=== PATIENT | female | born 1950 | race Caucasian/White ===

== ENCOUNTER → 2016-09-02 | Outpatient (REF) | payer MEDICARE ==
[~2016-09-02] MED LIST: ACET-654 PO; ACET50TA; ACET50TA PO; ALBU17IN INH; AUGM875T27 PO; AZIT250T3 PO; CALC0.5C PO; CALC1CAP31 PO; CEFA1BAG INJ; CINA30TA PO; DIFL200T PO; DOCU10CA PO; DOXY100C PO; EPOG1000 SQ; FERR325T3 PO; FISH100049 PO; FISH5CAP PO; FISHCAP5 PO; FLUD1TA PO; FOSR1000 PO; GABA-279 PO; GEMF600T PO; HYDR5TAB59 PO; LEVA500T PO; MICR10CA PO; MIDO5TA PO; MIRA33504 PO; MUCI600T34 PO; NEPHTAB PO; No Historical Meds; PERC5TAB6 PO; POTA20VL PO; PRAV20TA2 PO; PRAV40TA2 PO; PRIL20CA; RENATAB5 PO; RENV2TAB PO; RISATAB3 PO; ROPI0.5T PO; SENS90TA PO; TYLE325T5 PO; VIBR100C PO; VITA200015 PO; VITAD1000T PO; [UNRECOGNIZED DRUG - OTHER] PO
[2016-09-02 14:06] LABS: PERCENT SATURATION 53.3 % (13.2-37.4)
[2016-09-04 00:07] LABS: ENDOMYSIAL ABY IgA Negative (Negative)
== END ==
LOC: M LAB REF 12:26
PROVIDERS: ATTEND Internal Medicine Medical Oncology
DX: D64.9 Anemia, unspecified (principal)

== ENCOUNTER → 2016-09-20 | Outpatient (REF) | payer MEDICARE ==
[2016-09-20 21:18] LABS: TOTAL PROTEIN 6.9 GM/DL (6.4-8.2)
[2016-09-23 00:06] LABS: FREE KAPPA LIGHT CHAINS SERUM 186.96 mg/L (3.30-19.40); FREE LAMBDA LIGHT CHAINS SERUM 147.02 mg/L (5.71-26.30); KAPPA/LAMBDA RATIO SERUM 1.27 (0.26-1.65)
== END ==
LOC: M LAB REF 16:29
PROVIDERS: ATTEND Internal Medicine Medical Oncology
DX: D64.9 Anemia, unspecified (principal)

== ENCOUNTER → 2016-10-05 | Outpatient (REF) | payer MEDICARE ==
[~2016-10-05] MED LIST changes: +DRIS50002 PO; +[UNRECOGNIZED DRUG - CODE] PO
== END ==
LOC: M LAB REF 13:02
PROVIDERS: ATTEND Internal Medicine Medical Oncology
DX: D46.4 Refractory anemia, unspecified (principal)

== ENCOUNTER → 2016-10-11 | Outpatient (CLI) | payer MEDICARE ==
[2016-10-11 12:21] LABS: MEAN CORPUSCULAR HEMOGLOBIN 35.2 pg (27.0-33.0); MEAN CORPUSCULAR HGB CONC 31.5 g/dl (32.0-36.5); MEAN CORPUSCULAR VOLUME 111.7 fl (80.0-96.0); RED CELL DISTRIBUTION WIDTH 20.6 % (11.5-14.5); WHITE BLOOD COUNT 10.5 K/mm3 (4.0-10.0)
--- NOTE | 2016-10-11 18:00 | ECGEPIP ---
Stationary ECG Study [facility] Test Date: 2016-10-11 Pat Name: FREDDY FULLER Department: Room: - Gender: F Health And Safety Director: ELA : 1950 Requested By: Gumaro Mo Order Number: [id number] Reading MD: Arthur Dwyer Measurements Intervals [place] Rate: 99 P: 59 CA: 151 QRS: -27 QRSD: 96 T: 45 QT: 378 QTc: 486 Interpretive Statements SINUS RHYTHM LEFT ATRIAL ENLARGEMENT BORDERLINE LEFT AXIS DEVIATION NONSPECIFIC T-WAVE ABNORMALITY No change from 07/10/16 Electronically Signed On 10-11-2016 17:59:54 EST by Arthur Dwyer
== END ==
LOC: M LAB 11:02
PROVIDERS: ATTEND Anesthesiology
DX: Z01.818 Encounter for other preprocedural examination (principal)

== ENCOUNTER → 2016-10-14 | Day surgery (SDC) | payer MEDICARE ==
[~2016-10-14] VITALS: Ht 165.1 cm; Wt 77.1 kg
[~2016-10-14] MED LIST changes: +BUPIVACAINE HCL 0.25% 30 ML VIAL As Ordered ONE; +BUPIVACAINE HCL 0.25% 30 ML VIAL XX ONE; +D5W/0.2% SODIUM CHLORIDE 250 ML IV SCH; +GLYCOPYRROLATE INJ 0.2 MG/ML 2 ML VIAL As Ordered ONE; +HEPARIN 1,000 UNITS/ML 10ML VIAL (FOR RADIOLOGY& DIALYSIS ONLY) XX ONE; +HEPARIN SOD (PORCINE) 5000 UNITS/ML VIAL As Ordered ONE; +HEPARIN SOD (PORCINE) 5000 UNITS/ML VIAL XX ONE; +LIDOCAINE 2% INJ 100 MG/5 ML SDV (FOR ANES.) As Ordered ONE; +LR 1,000 ML IV SCH; +METOCLOPRAMIDE INJ 10MG/2ML VIAL (J2765) IV PRN; +MIDAZOLAM INJ 2 MG/2 ML VIAL (J2250) As Ordered ONE; +NEOSTIGMINE 1MG/ML 5 ML SYRINGE (J2710) As Ordered ONE; +NORCO, ANEXSIA 5/325MG TABLET (HYDROcodone/ACETAMINOPHEN) PO PRN; +NS 1,000 ML IV SCH; +ONDANSETRON 4MG/2ML VIAL (J2405) As Ordered ONE; +ONDANSETRON 4MG/2ML VIAL (J2405) IV PRN; +PERCOCET 5MG/325MG TAB PO PRN; +PHENYLephrine HCL 500 MCG/5 ML (100MCG/ML) SYRINGE (J2370) As Ordered ONE; +PROPOFOL 200 MG/20 ML VIAL As Ordered ONE; +ROCURONIUM BROMIDE 50 MG/5 ML VIAL As Ordered ONE; +VITA100L PO; +ePHEDrine SULFATE 25 MG/5 ML(5MG/ML) SYRINGE As Ordered ONE; +fentaNYL 100 MCG/2 ML INJECTION (J3010) As Ordered ONE; +fentaNYL 100 MCG/2 ML INJECTION (J3010) IV PRN
[2016-10-14 15:00] VITALS: BP 90/54
--- NOTE | 2016-10-14 20:55 | RO ---
DATE OF PROCEDURE: 10/14/2016 PREOPERATIVE DIAGNOSIS: End-stage renal disease. POSTOPERATIVE DIAGNOSIS: End-stage renal disease. OPERATIVE PROCEDURE: Laparoscopy with placement of continuous ambulatory peritoneal dialysis catheter. SURGEON: Jass Flores MD MANAGER HOTEL: Nicole Benavidez ANESTHESIA: General. INDICATIONS FOR PROCEDURE: The patient is a 66-year-old woman with a longstanding history of end-stage renal disease. She had previously undergone placement of a CAPD catheter and was doing well. Her catheter was subsequently damaged and she developed peritonitis. It was necessary to remove the peritoneal dialysis catheter. She has been doing hemodialysis for the last several months and is now for placement of a new peritoneal dialysis catheter. Because of her history of prior surgery and recent peritonitis, she will undergo laparoscopy with placement of the catheter. OPERATIVE PROCEDURE; The patient was placed under general endotracheal anesthesia. The patient's abdomen was prepped and draped in a sterile fashion. 0.25% Marcaine was infiltrated in the right upper quadrant and a small incision was made and Veress needle was inserted. After positive hanging drop test, the abdomen was insufflated with carbon dioxide gas. A 5 mm scope was placed through a 5-mm port and this was advanced through the abdominal wall without difficulty. Insufflation continued and inspection was performed with the laparoscope. The patient had no intra-abdominal adhesions. Visualized portions of the bowel and liver were normal. There were no evident fascial defects. I elected to place the new catheter in the right lower quadrant. Therefore, additional local anesthesia was achieved and a second 5 mm port was placed roughly through the midportion of the rectus muscle in the right lower quadrant. A 3 cm incision was then made longitudinally, centered on the right lower quadrant trocar site. The incision was deepened through the abundant subcutaneous tissues with the cautery. The rectus fascia was opened longitudinally. Some bleeding was controlled with the electrocautery. The opening in the peritoneum was identified. A pursestring suture of #2-0 Vicryl was placed in the peritoneum and the catheter was advanced into the abdomen. The pursestring suture was tied down and then the suture was tied about the inner pledget. The anterior rectus sheath was then closed beginning inferiorly and running superiorly with a #0 Vicryl suture. The catheter was then tunneled through the subcutaneous tissues to exit slightly more inferior and lateral through a separate stab wound. The second pledget was left approximately 1.5 cm beneath the skin surface. The wound was inspected and hemostasis was good. The laparoscope was reinserted. A small amount of blood within the abdomen was irrigated and this fluid was then drained through the catheter. The catheter was nicely positioned low in the pelvis about in the midline. The abdomen was then deflated and the remaining trocar was removed. The catheter was filled with 1 mL of 5000 units/cc heparin and approximately 1.3 mL of sterile saline. The catheter was then capped and a small clamp was applied. The right upper quadrant trocar site was closed with a buried suture of 4-0 vicryl. The insertion site was closed with buried 3-0 chromic and 4-0 vicryl. A Chlorhexidine gluconate OpSite was placed over the catheter exit site and a bulky bandage was then placed to cover the catheter. A small bandage was placed over the right upper quadrant trocar site. The patient tolerated the procedure well without apparent complication. She was extubated and transported to the recovery room in stable condition. DANYELLE
== END | disposition home or self-care (01) ==
LOC: M SDC 09:11
PROVIDERS: ATTEND Surgery
DX: N18.6 End stage renal disease (principal); E21.3 Hyperparathyroidism, unspecified; E55.9 Vitamin D deficiency, unspecified; E78.5 Hyperlipidemia, unspecified; D63.1 Anemia in chronic kidney disease; Z87.891 Personal history of nicotine dependence; Z88.1 Allergy status to other antibiotic agents; Z79.899 Other long term (current) drug therapy
CPT/HCPCS: 36415; 49418; 84132; J0690; J2250; J2370; J2405; J2710; J3010

== ENCOUNTER → 2017-01-25 | Outpatient (CLI) | payer MEDICARE ==
[~2017-01-25] MED LIST changes: -BUPIVACAINE HCL 0.25% 30 ML VIAL As Ordered ONE; -BUPIVACAINE HCL 0.25% 30 ML VIAL XX ONE; -D5W/0.2% SODIUM CHLORIDE 250 ML IV SCH; -GLYCOPYRROLATE INJ 0.2 MG/ML 2 ML VIAL As Ordered ONE; -HEPARIN 1,000 UNITS/ML 10ML VIAL (FOR RADIOLOGY& DIALYSIS ONLY) XX ONE; -HEPARIN SOD (PORCINE) 5000 UNITS/ML VIAL As Ordered ONE; -HEPARIN SOD (PORCINE) 5000 UNITS/ML VIAL XX ONE; -LIDOCAINE 2% INJ 100 MG/5 ML SDV (FOR ANES.) As Ordered ONE; +LIDOCAINE 2% MDV 20 ML VIAL As Ordered ONE; -LR 1,000 ML IV SCH; -METOCLOPRAMIDE INJ 10MG/2ML VIAL (J2765) IV PRN; -MIDAZOLAM INJ 2 MG/2 ML VIAL (J2250) As Ordered ONE; -NEOSTIGMINE 1MG/ML 5 ML SYRINGE (J2710) As Ordered ONE; -NORCO, ANEXSIA 5/325MG TABLET (HYDROcodone/ACETAMINOPHEN) PO PRN; -NS 1,000 ML IV SCH; -ONDANSETRON 4MG/2ML VIAL (J2405) As Ordered ONE; -ONDANSETRON 4MG/2ML VIAL (J2405) IV PRN; -PERCOCET 5MG/325MG TAB PO PRN; -PHENYLephrine HCL 500 MCG/5 ML (100MCG/ML) SYRINGE (J2370) As Ordered ONE; -PROPOFOL 200 MG/20 ML VIAL As Ordered ONE; -ROCURONIUM BROMIDE 50 MG/5 ML VIAL As Ordered ONE; -ePHEDrine SULFATE 25 MG/5 ML(5MG/ML) SYRINGE As Ordered ONE; -fentaNYL 100 MCG/2 ML INJECTION (J3010) As Ordered ONE; -fentaNYL 100 MCG/2 ML INJECTION (J3010) IV PRN
--- NOTE | 2017-02-03 16:23 | REPKIM ---
CLINICAL HISTORY: Patient has a left IJ TDC for ongoing dialysis. The referring nephrology service has requested to remove the existing TDC because it is no longer needed. PROCEDURE PERFORMED: Tunneled Dialysis Catheter Removal INTERVENTIONALIST: Dr. Brandon Linn CONSENT: The risks, benefits and alternatives to the procedure were explained to the patient and informed written consent was obtained. MEDICATION: Local Lidocaine 2% EBL: 5 mL PROCEDURE/FINDINGS: The patient was brought to the interventional radiology suite and placed in the supine position with head of bed elevated. Time out procedure was performed. The area was prepped and draped in a usual sterile fashion. Local anesthesia was administered subcutaneously to the catheter exit site using 2% Lidocaine. The catheter cuff was bluntly dissected free from the surrounding soft tissues. The catheter was removed, inspected and confirmed to be removed in its entirety. Hemostasis was achieved by manual compression. A sterile dressing was applied. The patient tolerated the procedure well with no immediate complications. No imaging was used. Dr. Linn was present. IMPRESSION: Tunneled dialysis catheter removal as discussed above. cc: MD DANYELLE Naranjo
== END | disposition home or self-care (01) ==
LOC: M IRPRO 11:25
PROVIDERS: ATTEND Internal Medicine Nephrology
DX: Z45.2 Encounter for adjustment and management of vascular access device (principal); N18.9 Chronic kidney disease, unspecified; Z99.2 Dependence on renal dialysis

== ENCOUNTER → 2017-02-10 | Outpatient (CLI) | payer MEDICARE ==
[~2017-02-10] MED LIST changes: -LIDOCAINE 2% MDV 20 ML VIAL As Ordered ONE
== END ==
LOC: M SMT 15:18
PROVIDERS: ATTEND Internal Medicine Nephrology
DX: D64.9 Anemia, unspecified (principal)

== ENCOUNTER 2017-02-11 09:44 | Outpatient (CLI) | payer MEDICARE ==
[~2017-02-11] VITALS: Ht 165.1 cm; Wt 88.7 kg
[2017-02-11] MEDS ORDERED: diphenhydrAMINE 25 MG CAP PO ONE (10:00)
== END 2017-02-11 17:00 | disposition home or self-care (01) ==
LOC: M OPCLI4PV 09:44 → M MSPAV 09:47 → M OPCLI4PV 17:00
PROVIDERS: ATTEND Internal Medicine Nephrology
DX: D46.0 Refractory anemia without ring sideroblasts, so stated (principal); N18.6 End stage renal disease; Z88.8 Allergy status to other drugs, medicaments and biological substances; Z79.899 Other long term (current) drug therapy
CPT/HCPCS: 36430; P9016

== ENCOUNTER → 2017-03-09 | Outpatient (CLI) | payer MEDICARE ==
[~2017-03-09] MED LIST changes: -ACET-654 PO; +ACET1TAB17 PO; -AUGM875T27 PO; +AUGM875T28 PO; +AZIT-12 PO; -AZIT250T3 PO; +FLUD0.1T PO; -FLUD1TA PO; +LEVA1TAB2 PO; -LEVA500T PO; +MIDO10TA PO; -MUCI600T34 PO; +MUCI600T37 PO; +PERC5TAB12 PO; -PERC5TAB6 PO; +PROM25TA PO; +TRAM50TA2 PO; +ZOFR20TA PO
--- NOTE | 2017-03-09 10:49 | REP ---
PA and lateral chest: Comparison is 07/13/2016. The lung aguilar are clear. There are no pleural effusions. There is chronic cardiomegaly, unchanged. The sandra, mediastinum, and bony thorax are unremarkable. The previous left IJ central venous catheter has been removed. Impression: Chronic cardiomegaly. Otherwise, negative PA and lateral chest. Signed by Jonas Kumar MD 03/09/2017 10:41 A
== END ==
LOC: M SMT 10:21
PROVIDERS: ATTEND Nurse Practitioner Adult Health
DX: R06.02 Shortness of breath (principal); I51.7 Cardiomegaly

== ENCOUNTER → 2017-04-24 | Outpatient (CLI) | payer MEDICARE ==
--- NOTE | 2017-04-28 09:25 | SLEEPCENT ---
DATE OF STUDY: 04/24/2017 ORDERING PROVIDER: SHIRA Kaur Nocturnal polysomnography was performed for evaluation of sleep physiology in this patient with excessive somnolence, abnormal nocturnal oximetry, and nonrestorative sleep. 7 hours and 49 minutes of data were reviewed. There were 372 minutes of sleep identified. Sleep latency was prolonged at 29 minutes. Rapid eye movement (REM) latency was prolonged at 186 minutes. Sleep architecture was poor with poor progression. Overall sleep efficiency was 80.3%. The patient's electrocardiogram (EKG) showed a sinus rhythm with an average heart rate of 88 beats per minute. Electroencephalogram (EEG) showed fairly normal waveforms for awake and sleep. There were 293 respiratory events identified of 10 seconds in duration or greater for an apnea-hypopnea index of 47.3. The events were frequently central; 222 central and 35 mixed apneas were scored. The events were not exclusive to sleep stage nor body posture. They were associated with oxygen desaturations into the 80s; and having clearly established the presence of obstructive sleep apnea syndrome early in testing, the study was stopped shortly before midnight for the application of pressure therapy. The patient was fit with a ResMed Quattro full face mask of extra small size. An initial pressure of 4 cm was applied to the circuit, and the lights were extinguished. Persistence of respiratory events prompted an increase in pressure; and despite optimal mask fit and minimal air leak, the patient required a change to a bilevel device. Central apneas present during the diagnostic portion of the study persisted, prompting the addition of a backup rate. The pressures were advanced as high as 15 over 9. Respiratory events persisted, although less frequently and with less oxygen desaturation. Some limb activity was also noted throughout the study. Limb movement arousal index was 7.9. Some of the limb events were felt to be secondary to respiratory arousals. IMPRESSION: 1. Severe complex obstructive sleep apnea syndrome. Apnea-hypopnea index of 47.3 with greater than 50% central events. 2. Periodic limb movement disorder (G47.61). Limb movement arousal index 7.9. RECOMMENDATION: Attempts were made during the study to titrate the patient onto a bilevel device. Sleep did improve somewhat on a bilevel device of inspiratory 15 over expiratory 9 with a backup rate of 8. Consideration could be given to initiation of pressure therapy at this setting. However, persistence of events were seen, and a full-night retitration study is recommended.
== END ==
LOC: M SLEEP 20:00
PROVIDERS: ATTEND Nurse Practitioner Adult Health
DX: G47.30 Sleep apnea, unspecified (principal); R06.83 Snoring; R40.0 Somnolence

== ENCOUNTER → 2017-05-26 | Outpatient (CLI) | payer MEDICARE ==
--- NOTE | 2017-05-26 17:29 | REP ---
Procedure: PICC line insertion with Drake-Fidelia The procedure was performed under the direct supervision of Dr. Ferguson. The risks and benefits of the procedure were explained to the patient and informed consent was obtained. The left basilic vein was localized using ultrasound guidance. The skin was prepped and draped in a sterile fashion. 2% lidocaine was used as a local anesthetic. Using ultrasound guidance the basilic vein was cannulated and a 0.018 guidewire was inserted and advanced to the SVC using fluoroscopic guidance. The needle was removed and a 4.5 Mozambican dilator and peel-away sheath was inserted over the guide wire. A 4.5 [place] single lumen catheter was cut to length of 45 cm. The dilator was removed and the catheter was inserted over the guide wire with the tip ending in the SVC. The peel-away sheath was removed and the catheter was flushed with heparinized saline as per Hospital protocol. The catheter was affixed to the skin and a sterile dressing was applied. The the patient tolerated the procedure well and there were no immediate complications. 0.4 minutes of fluoro time was utilized for this procedure. Reviewed by ANICETO Chester 05/26/2017 04:48 PSigned by Sacha Ferguson MD 05/26/2017 05:19 P
== END ==
LOC: M RADPRO 08:40
PROVIDERS: ATTEND Internal Medicine Nephrology
DX: I87.2 Venous insufficiency (chronic) (peripheral) (principal); N18.6 End stage renal disease; Z90.5 Acquired absence of kidney; Z99.2 Dependence on renal dialysis; Z93.8 Other artificial opening status; Z88.1 Allergy status to other antibiotic agents; Z88.8 Allergy status to other drugs, medicaments and biological substances; Z79.899 Other long term (current) drug therapy

== ENCOUNTER 2017-05-27 12:50 | Outpatient (CLI) | payer MEDICARE ==
[~2017-05-27 12:50] MED LIST changes: -MIDO10TA PO; -PROM25TA PO; -TRAM50TA2 PO; -ZOFR20TA PO
[2017-05-27] MEDS ORDERED: SODIUM CHLORIDE 0.9% INJ 10 ML SYR IV PRN (13:30)
[2017-05-27] MEDS ORDERED: SODIUM THIOSULFATE 100 ML IV ONE (13:30)
[2017-05-27] MEDS ORDERED: TRAM50TA2 PO (16:02)
[2017-05-27] MEDS ORDERED: SODIUM CHLORIDE 0.9% INJ 10 ML SYR IV SCH (18:00)
== END 2017-05-27 15:55 | disposition home or self-care (01) ==
LOC: M INFU 12:50
PROVIDERS: ATTEND Internal Medicine Nephrology
DX: E83.59 Other disorders of calcium metabolism (principal); N18.6 End stage renal disease; Z90.5 Acquired absence of kidney; Z99.2 Dependence on renal dialysis; Z87.891 Personal history of nicotine dependence; Z88.1 Allergy status to other antibiotic agents; Z88.8 Allergy status to other drugs, medicaments and biological substances; Z79.899 Other long term (current) drug therapy

== ENCOUNTER 2017-05-30 13:28 | Outpatient (CLI) | payer MEDICARE ==
[~2017-05-30] VITALS: Ht 165.1 cm; Wt 88.7 kg
[~2017-05-30 13:28] MED LIST changes: +TRAM50TA2 PO
[2017-05-30] MEDS ORDERED: SODIUM THIOSULFATE 100 ML IV ONE (13:30)
[2017-05-30] MEDS ORDERED: SODIUM CHLORIDE 0.9% INJ 10 ML SYR IV PRN (14:30)
[2017-05-30] MEDS ORDERED: SODIUM CHLORIDE 0.9% INJ 10 ML SYR IV SCH (18:00)
== END 2017-05-30 14:45 | disposition home or self-care (01) ==
LOC: M INFU 13:28
PROVIDERS: ATTEND Internal Medicine Nephrology
DX: E83.59 Other disorders of calcium metabolism (principal); Z90.5 Acquired absence of kidney; Z87.891 Personal history of nicotine dependence; Z79.899 Other long term (current) drug therapy; Z88.1 Allergy status to other antibiotic agents; Z88.8 Allergy status to other drugs, medicaments and biological substances; N18.6 End stage renal disease; Z99.2 Dependence on renal dialysis

== ENCOUNTER 2017-06-01 07:15 | Outpatient (CLI) | payer MEDICARE ==
[2017-06-01] MEDS ORDERED: SODIUM CHLORIDE 0.9% INJ 10 ML SYR IV PRN (07:45)
[2017-06-01] MEDS ORDERED: SODIUM THIOSULFATE 100 ML IV ONE (08:00)
[2017-06-01] MEDS ORDERED: SODIUM CHLORIDE 0.9% INJ 10 ML SYR IV SCH (18:00)
== END 2017-06-01 09:10 | disposition home or self-care (01) ==
LOC: M INFU 07:15
PROVIDERS: ATTEND Internal Medicine Nephrology
DX: E83.59 Other disorders of calcium metabolism (principal); Z90.5 Acquired absence of kidney; N18.6 End stage renal disease; Z99.2 Dependence on renal dialysis; Z88.8 Allergy status to other drugs, medicaments and biological substances; Z88.1 Allergy status to other antibiotic agents; Z79.899 Other long term (current) drug therapy; Z87.891 Personal history of nicotine dependence

== ENCOUNTER 2017-06-03 07:23 | Outpatient (CLI) | payer MEDICARE ==
[~2017-06-03] VITALS: Ht 165.1 cm; Wt 88.7 kg
[~2017-06-03 07:23] MED LIST changes: +SODIUM CHLORIDE 0.9% INJ 10 ML SYR IV PRN
[2017-06-03] MEDS ORDERED: SODIUM THIOSULFATE 100 ML IV ONE (08:00)
[2017-06-03] MEDS ORDERED: SODIUM CHLORIDE 0.9% INJ 10 ML SYR IV SCH (18:00)
== END 2017-06-03 08:30 | disposition home or self-care (01) ==
LOC: M INFU 07:23
PROVIDERS: ATTEND Internal Medicine Nephrology
DX: E83.59 Other disorders of calcium metabolism (principal); Z90.5 Acquired absence of kidney; N18.6 End stage renal disease; Z99.2 Dependence on renal dialysis; Z88.8 Allergy status to other drugs, medicaments and biological substances; Z88.1 Allergy status to other antibiotic agents; Z87.891 Personal history of nicotine dependence; Z79.899 Other long term (current) drug therapy

== ENCOUNTER 2017-06-06 09:30 | Outpatient (CLI) | payer MEDICARE ==
[~2017-06-06] VITALS: Ht 165.1 cm; Wt 88.7 kg
[~2017-06-06 09:30] MED LIST changes: -SODIUM CHLORIDE 0.9% INJ 10 ML SYR IV PRN
[2017-06-06] MEDS: SODIUM THIOSULFATE 100 ML IV ONE (10:00)
[2017-06-06] MEDS: SODIUM CHLORIDE 0.9% INJ 10 ML SYR IV SCH (10:36)
[2017-06-06] MEDS ORDERED: SODIUM CHLORIDE 0.9% INJ 10 ML SYR IV PRN (10:45)
== END 2017-06-06 10:40 | disposition home or self-care (01) ==
LOC: M INFU 09:30
PROVIDERS: ATTEND Internal Medicine Nephrology
DX: E83.59 Other disorders of calcium metabolism (principal); N18.6 End stage renal disease; Z90.5 Acquired absence of kidney; Z99.2 Dependence on renal dialysis; Z88.8 Allergy status to other drugs, medicaments and biological substances; Z88.1 Allergy status to other antibiotic agents; Z79.899 Other long term (current) drug therapy; Z87.891 Personal history of nicotine dependence

== ENCOUNTER 2017-06-08 07:42 | Outpatient (CLI) | payer MEDICARE ==
[~2017-06-08] VITALS: Ht 165.1 cm; Wt 88.7 kg
[2017-06-08] MEDS: DILUENT IV ONE (08:03)
[2017-06-08] MEDS: SODIUM THIOSULFATE IV ONE (08:03)
[2017-06-08] MEDS ORDERED: SODIUM CHLORIDE 0.9% INJ 10 ML SYR IV SCH (09:00)
== END 2017-06-08 09:00 | disposition home or self-care (01) ==
LOC: M INFU 07:42
PROVIDERS: ATTEND Internal Medicine Nephrology
DX: E83.59 Other disorders of calcium metabolism (principal); Z90.5 Acquired absence of kidney; N18.6 End stage renal disease; Z99.2 Dependence on renal dialysis; Z88.8 Allergy status to other drugs, medicaments and biological substances; Z88.1 Allergy status to other antibiotic agents; Z79.899 Other long term (current) drug therapy; Z87.891 Personal history of nicotine dependence

== ENCOUNTER 2017-06-10 07:42 | Outpatient (CLI) | payer MEDICARE ==
[~2017-06-10] VITALS: Ht 165.1 cm; Wt 88.7 kg
[~2017-06-10 07:42] MED LIST changes: +SODIUM CHLORIDE 0.9% INJ 10 ML SYR IV PRN
[2017-06-10] MEDS ORDERED: DILUENT IV ONE (08:00)
[2017-06-10] MEDS ORDERED: SODIUM THIOSULFATE IV ONE (08:00)
[2017-06-10] MEDS ORDERED: SODIUM CHLORIDE 0.9% INJ 10 ML SYR IV SCH (18:00)
== END 2017-06-10 08:55 | disposition home or self-care (01) ==
LOC: M INFU 07:42
PROVIDERS: ATTEND Internal Medicine Nephrology
DX: E83.59 Other disorders of calcium metabolism (principal); N18.6 End stage renal disease; Z90.5 Acquired absence of kidney; Z99.2 Dependence on renal dialysis; Z88.8 Allergy status to other drugs, medicaments and biological substances; Z88.1 Allergy status to other antibiotic agents; Z79.899 Other long term (current) drug therapy; Z87.891 Personal history of nicotine dependence

== ENCOUNTER 2017-06-13 08:53 | Outpatient (CLI) | payer MEDICARE ==
[~2017-06-13] VITALS: Ht 165.1 cm; Wt 88.7 kg
[~2017-06-13 08:53] MED LIST changes: -SODIUM CHLORIDE 0.9% INJ 10 ML SYR IV PRN
[2017-06-13] MEDS ORDERED: DILUENT IV ONE (09:00)
[2017-06-13] MEDS ORDERED: SODIUM CHLORIDE 0.9% INJ 10 ML SYR IV PRN (09:00)
[2017-06-13] MEDS ORDERED: SODIUM THIOSULFATE IV ONE (09:00)
[2017-06-13] MEDS ORDERED: SODIUM CHLORIDE 0.9% INJ 10 ML SYR IV SCH (18:00)
[2017-06-15] MEDS ORDERED: SODIUM CHLORIDE 0.9% INJ 10 ML SYR IV PRN (07:45)
== END 2017-06-13 10:15 | disposition home or self-care (01) ==
LOC: M INFU 08:53
PROVIDERS: ATTEND Internal Medicine Nephrology
DX: E83.59 Other disorders of calcium metabolism (principal); N18.6 End stage renal disease; Z88.1 Allergy status to other antibiotic agents; Z88.8 Allergy status to other drugs, medicaments and biological substances

== ENCOUNTER 2017-06-15 07:45 | Outpatient (CLI) | payer MEDICARE ==
[~2017-06-15] VITALS: Ht 165.1 cm; Wt 88.7 kg
[2017-06-15] MEDS ORDERED: DILUENT IV ONE (08:00)
[2017-06-15] MEDS ORDERED: SODIUM THIOSULFATE IV ONE (08:00)
[2017-06-15] MEDS: SODIUM CHLORIDE 0.9% INJ 10 ML SYR IV PRN ×2 (08:32→10:30)
[2017-06-15] MEDS ORDERED: ONDANSETRON 4MG/2ML VIAL (J2405) As Ordered ONE (10:22)
[2017-06-15] MEDS ORDERED: ONDANSETRON 4MG/2ML VIAL (J2405) IV ONE (10:30)
[2017-06-15] MEDS ORDERED: PERC5TAB12 PO (12:24)
[2017-06-15] MEDS ORDERED: ZOFR20TA PO (12:27)
[2017-06-15] MEDS ORDERED: MIDO10TA PO (12:29)
[2017-06-15] MEDS ORDERED: SODIUM CHLORIDE 0.9% INJ 10 ML SYR IV SCH (18:00)
== END 2017-06-15 11:15 | disposition home or self-care (01) ==
LOC: M INFU 07:45
PROVIDERS: ATTEND Internal Medicine Nephrology
DX: E83.59 Other disorders of calcium metabolism (principal); N18.6 End stage renal disease; Z88.1 Allergy status to other antibiotic agents; Z88.8 Allergy status to other drugs, medicaments and biological substances

== ENCOUNTER 2017-06-15 10:38 | Inpatient (IN) | payer MEDICARE ==
[2017-06-15] MEDS: D5W 1,000 ML IV SCH ×2 (10:45→20:09)
[2017-06-15] MEDS ORDERED: ACETAMINOPHEN TAB 650MG DOSE (2X325MG) PO PRN (10:45)
[2017-06-15] MEDS ORDERED: PERC5TAB12 PO (12:24)
[2017-06-15] MEDS ORDERED: ZOFR20TA PO (12:27)
[2017-06-15] MEDS ORDERED: MIDO10TA PO (12:29)
[2017-06-15 12:42] LABS: EOS % 0.4 % (0.0-3.0); IMMATURE GRANULOCYTE % 0.8 % (0-0); LYMPH # 0.8 10^3/uL (1.5-4.5); LYMPH % 9.6 % (24.0-44.0); MEAN CORPUSCULAR HEMOGLOBIN 35.2 pg (27.0-33.0); MEAN CORPUSCULAR HGB CONC 34.7 g/dl (32.0-36.5); MEAN CORPUSCULAR VOLUME 101.5 fl (80.0-96.0); MONO # 0.6 10^3/uL (0.0-0.8); MONO % 8.1 % (0.0-5.0); NEUTROPHILS # 6.3 10^3/uL (1.8-7.7); NEUTROPHILS % 81.1 % (36.0-66.0); PLATELET COUNT, AUTOMATED 189 10^3/uL (150-450); RED CELL DISTRIBUTION WIDTH 18.2 % (11.5-14.5); WHITE BLOOD COUNT 7.8 10^3/uL (4.0-10.0)
[2017-06-15] MEDS ORDERED: SODIUM CHLORIDE 0.9% INJ 10 ML SYR IV PRN (12:45)
[2017-06-15 13:23] LABS: ALBUMIN 2.4 GM/DL (3.2-5.2); ALBUMIN/GLOBULIN RATIO 0.69 (1.00-1.93); BILIRUBIN,TOTAL 0.3 MG/DL (0.2-1.0); CALCIUM LEVEL 8.6 MG/DL (8.8-10.2); CREATININE FOR GFR 10.9 MG/DL (0.55-1.02); GLOMERULAR FILTRATION RATE 3.8 (>45); MAGNESIUM LEVEL 1.7 MG/DL (1.8-2.4); PHOSPHORUS LEVEL 7.1 MG/DL (2.5-4.9); POTASSIUM SERUM 3.4 MEQ/L (3.5-5.1); TOTAL PROTEIN 5.9 GM/DL (6.4-8.2)
--- NOTE | 2017-06-15 15:17 | HPE ---
DATE OF ADMISSION: 06/15/2017 This is a patient of Dr. Brown's. CHIEF COMPLAINT: Weakness. HISTORY OF PRESENT ILLNESS: Ms. Myers is a 66-year-old female with end-stage renal disease on peritoneal dialysis and calciphylaxis who has been taking sodium thiosulfate. Since apparently with the first dose, she had some nausea. With the subsequent doses, she began to feel more ill and on 06/10/2017, she was very nauseous and weak after receiving the sodium thiosulfate. She was sick all weekend with decreased oral intake, nausea and vomiting. Today, she presented for her treatment and was noted to have an elevated sodium, as reported to me from Dr. Brown as 159 and hemoglobin of 7, and he has asked me to direct admit her. On evaluation, the patient is nauseous, tired, retching at bedside. I have ordered her a dose of Zofran which is one of her home medications to be given IV. She has had no fever. She is always cold but does not experience chills. No change in her bowel habits. Otherwise, unremarkable review of systems. PAST MEDICAL HISTORY: Notable for: 1. End-stage renal disease on peritoneal dialysis. 2. Staghorn kidney stones. 3. Recurrent urinary tract infection. 4. Recurrent peritonitis. 5. Hypotension on Florinef and hydrocortisone. 6. Shingles. 7. Hyperlipidemia. 8. Hyperparathyroidism. 9. Anemia of chronic kidney disease status post multiple transfusions. PAST SURGICAL HISTORY: Notable for: 1. Back surgery. 2. Peritoneal catheter placement. 3. Bilateral nephrectomies. 4. Hernia repair. ALLERGIES: VANCOMYCIN and VALTREX. HOME MEDICATIONS: List is yet to be obtained. FAMILY HISTORY: Notable for a father who of heart disease and stroke. Her mother's medical history is unknown. SOCIAL HISTORY: The patient is a former smoker. She does not use alcohol. REVIEW OF SYSTEMS: As previously stated, otherwise unremarkable. PHYSICAL EXAMINATION: Most recent blood pressure is 105/49, pulse 92, 100% on room air, respiratory rate 16. She is in no acute distress but she is intermittently retching. Head is normocephalic. Pupils are equal, round, anicteric, noninjected. Nasal septum is midline. Mucous membranes are moist. Neck is supple. Skin is dry. Radial pulses are 2+, capillary refill is less than two seconds. Heart is regular rate and rhythm, distant sounding. Breathing is symmetrical and rested. Abdomen is soft, hypoactive bowel sounds, nontender. There is no lower extremity edema. There are no further laboratories to review other than what I have previously stated. ASSESSMENT: This is a 66-year-old with end-stage renal disease on peritoneal dialysis with adverse drug reaction to sodium thiosulfate with resulting hypernatremia and anemia. PLAN: 1. Renal. The patient will be seen in consultation by Dr. Brown. We will start D5W at 100 mL per hour for her hypernatremia. I have obtained informed consent for a blood transfusion and we will order two units packed red blood cells. 2. The patient has calciphylaxis. 3. The patient has a history of previous episodes of sepsis. Her abdomen is benign. It seems unlikely that she has any sort of infection at this point. We will withhold any antibiotics and monitor her clinically. No role for culturing her at this point. 4. The patient has anemia and will be treated with blood transfusion. We will check stool for occult blood. 5. Deep vein thrombosis (DVT) prophylaxis can be mechanical.
[2017-06-15] MEDS: ONDANSETRON 4MG/2ML VIAL (J2405) IV PRN ×2 (16:11→22:19)
[2017-06-15 17:09] VITALS: BP 122/73
[2017-06-15] MEDS ORDERED: (RENVELA) SEVELAMER **CARBONate** 800 MG TAB PO SCH (18:00)
[2017-06-15] MEDS: SODIUM CHLORIDE 0.9% INJ 10 ML SYR IV SCH (18:00)
[2017-06-15] MEDS ORDERED: POTASSIUM CHLORIDE 10% LIQ 20 MEQ/15 ML UDC PO ONE (18:15)
--- NOTE | 2017-06-15 21:02 | ECGEPIP ---
Stationary ECG Study [facility] Test Date: 2017-06-15 Pat Name: FREDDY FULLER Department: Room: [place] [address] Gender: F Time Study Analyst: ELA : 1950 Requested By: EDGARDO Cuba Order Number: [id number] Reading MD: Arthur Dwyer Measurements Intervals [place] Rate: 97 P: 74 ND: 180 QRS: 2 QRSD: 122 T: 76 QT: 473 QTc: 602 Interpretive Statements Baseline artifact V5 and V6 Normal sinus rhythm with isolated PVC LA conduction disturbance? Left axis deviation, incomplete Left bundle branch block with nonspecific ST/T-wave abnormalities Possible LVH No change from 10/11/16 Electronically Signed On 06-15-2017 21:02:22 EDT by Arthur Dwyer
[2017-06-16] MEDS: SODIUM CHLORIDE 0.9% INJ 10 ML SYR IV SCH ×2 (05:43→17:13)
[2017-06-16 06:00] VITALS: BP 99/58
[2017-06-16] MEDS: ONDANSETRON 4MG/2ML VIAL (J2405) IV PRN (06:18)
[2017-06-16 06:34] LABS: MEAN CORPUSCULAR HEMOGLOBIN 32.8 pg (27.0-33.0); MEAN CORPUSCULAR HGB CONC 34.5 g/dl (32.0-36.5); PLATELET COUNT, AUTOMATED 169 10^3/uL (150-450); WHITE BLOOD COUNT 7.4 10^3/uL (4.0-10.0)
[2017-06-16 06:38] LABS: RED CELL DISTRIBUTION WIDTH 21.8 % (11.5-14.5)
[2017-06-16 06:48] LABS: ALBUMIN 2.3 GM/DL (3.2-5.2); CALCIUM LEVEL 8.8 MG/DL (8.8-10.2); CREATININE FOR GFR 10.6 MG/DL (0.55-1.02); GLOMERULAR FILTRATION RATE 3.9 (>45); MAGNESIUM LEVEL 1.6 MG/DL (1.8-2.4); PHOSPHORUS LEVEL 6.7 MG/DL (2.5-4.9); POTASSIUM SERUM 3.3 MEQ/L (3.5-5.1)
[2017-06-16] MEDS: (RENVELA) SEVELAMER **CARBONate** 800 MG TAB PO SCH ×3 (08:00→17:26)
[2017-06-16] MEDS: CINACALCET 30 MG TAB (SENSIPAR) PO SCH ×2 (08:05→20:12)
[2017-06-16] MEDS: MIDODRINE 5 MG TAB PO SCH ×3 (08:06→15:25)
[2017-06-16] MEDS: CALCITRIOL 0.25 MCG CAP (S0169) PO SCH (08:06)
[2017-06-16] MEDS ORDERED: MAG SULF 1GM/100ML (MAG RUN) 1 GM in APPROPRIATE DILUENT 1 EA IV ONE (10:00)
[2017-06-16] MEDS ORDERED: POTASSIUM CHLORIDE 10 MEQ SR TABLET PO ONE (10:00)
[2017-06-16] MEDS ORDERED: POTASSIUM CHLORIDE 10% LIQ 20 MEQ/15 ML UDC PO ONE (11:00)
[2017-06-16] MEDS: PROMETHAZINE INJ 25 MG/ML VIAL (J2550) IV PRN ×2 (11:57→23:29)
--- NOTE | 2017-06-16 12:31 | CR ---
DATE OF CONSULTATION: 06/15/2017 REQUESTING PHYSICIAN: Dr. Danny Ramirez CONSULTANTS: Dr. Brown REASON FOR CONSULTATION: Management of end stage renal disease and peritoneal dialysis with dehydration and hypernatremia secondary to recurrent vomiting. HISTORY OF PRESENT ILLNESS: Patient is a 66-year-old female with a past medical history of end stage renal disease on peritoneal dialysis with for the past 9 years, history of hypotension and multiple other comorbidities as mentioned below. The patient has developed calciphylaxis in the right medial thigh and she started sodium thiosulfate infusions three times weekly with first dose on 05/25/2017. The patient has had intractable nausea and vomiting associated with the sodium thiosulfate infusions and has had hypernatremia as an outpatient. She was seen in peritoneal dialysis clinic yesterday and she complained of intractable nausea and vomiting, inability to tolerate oral intake, generalized weakness and fatigue. Laboratories demonstrated hypernatremia and anemia. A discussion was had with the patient with recommendation made for inpatient admission today. After an infusion of sodium thiosulfate, the patient agreed for admission for hypotonic fluids and packed red blood cell transfusion and antiemetics. Her current serum sodium was 149. It was previously in the mid 150s and her current hemoglobin is 7. PAST MEDICAL HISTORY: 1. End stage renal disease. Peritoneal dialysis dependent for the past 9 years. 2. Renal failure secondary to bilateral staghorn kidney stones. 3. History of recurrent urinary tract infections and chronic pyelonephritis. 4. Secondary hyperparathyroidism. 5. Anemia of chronic kidney disease with history of multiple transfusions. 6. Recent diagnosis of calciphylaxis. PAST SURGICAL HISTORY: 1. PD catheter placement. 2. Status post bilateral nephrectomies in October 2014. 3. Remote history of back surgery in 1997. 4. Hernia repair. ALLERGIES: VANCOMYCIN, VALACYCLOVIR. HOME MEDICATIONS: - Calcitriol 0.25 mcg daily - vitamin D 2000 units by mouth daily - Sensipar 30 mg by mouth twice a day - fish oil 1000 mg by mouth twice a day - gabapentin 100 mg by mouth three times a day - midodrine 10 mg by mouth three times a day - Zofran 4 mg by mouth every 6 hours as needed - red yeast rice 600 mg capsule daily - Renvela 3200 mg by mouth with meals - vitamin D 60,000 unit capsule by mouth weekly - home PD prescription, currently on 1.5% exchanges FAMILY HISTORY: Heart disease in her father. SOCIAL HISTORY: The patient denies alcohol or illicit drug use. She is an ex-smoker. She lives at home with her . REVIEW OF SYSTEMS: As mentioned in the history of present illness. Otherwise, 12-point review of systems is negative. PHYSICAL EXAMINATION: VITAL SIGNS: Temperature 98.1, pulse 95, respiratory rate 20, blood pressure 122/73, saturating 98% on room air. The patient is seen at bedside. Her is present. She is in mild gastrointestinal distress, holding a bag used for emesis. HEAD AND NECK: Extraocular muscles are intact. Her oral mucosa is moist. Her neck is supple. There is no lymphadenopathy or jugular venous distention (JVD). CARDIAC: S1, S2 regular rate and rhythm. There is 2+ radial pulse. No edema in the extremities. LUNGS: Clear to auscultation bilaterally. ABDOMEN: Soft, obese, nontender. PD catheter site is intact. There is some mild tenderness to palpation in the epigastrium. NEUROLOGIC: There are no focal deficits. She is appropriately interactive and conversational. PSYCHIATRIC: Appropriate mood and affect. LABORATORY DATA: White count 7.8, hemoglobin 7, platelets 189. Sodium 149, potassium 3.4, bicarbonate 23, magnesium 1.7, corrected calcium 9.8. Liver function tests are normal. TSH is 1.2 and intact parathyroid hormone is 712. Phosphorous is 7.1. INPATIENT MEDICATIONS: The patient is receiving D5W at 100 mL an hour, Zofran as needed, Renvela four tablets by mouth with meals, one time dose of potassium chloride 40 mEq and midodrine 10 mg by mouth three times a day and Sensipar 30 mg by mouth twice a day, and calcitriol 0.25 mcg by mouth daily. PROBLEMS: 1. Hypernatremia. The patient is started on hypotonic fluids with D5W at 100 mL an hour for correction of her dehydration. She is also receiving 1.5% dianeal for all of her peritoneal dialysis exchanges for correction of her hypernatremia. She is receiving Zofran as needed for her emesis and nausea. 2. End stage renal disease. On peritoneal dialysis. The patient continues with five exchanges of 1.5% dianeal with 2 liters for each exchange. She is expected to retain fluid on this regimen as is necessary for her correction of hypernatremia. 3. Calciphylaxis. The patient has calciphylaxis in the right medial thigh. She started sodium thiosulfate infusions three times weekly on 05/25/2017. Her next infusion will be on 06/17/2017. Her treatment is complicated by recurrent nausea and vomiting causing hypernatremia. 4. Secondary hyperparathyroidism. The patient is noncompliant with phos binders. Her PTH is 714 and phosphorous is 7.1 with a corrected calcium of 9.8. She is resumed on Renvela, Calcitriol and Sensipar as per her home regimen. Poor control of her secondary hyperparathyroidism retirement is a major risk factor for calciphylaxis. 5. Anemia of chronic kidney disease. The patient will receive 2 units of packed red blood cells transfusion. MTDD
--- NOTE | 2017-06-16 18:50 | REPUSA ---
CT of the abdomen and pelvis without contrast Clinical statement: nausea, vomiting. Technique: Multiple axial CT images were obtained from the base of the lungs to the floor of the pelv is utilizing 5 mm axial slices without administration of contrast. Coronal and sagittal reconstructio ns were also obtained. Comparison: 07/15/2016. Findings: Chest: The visualized lung bases are clear. Abdomen: The kidneys are atrophic bilaterally. There is a large amount of abdominal ascites. Mild nod ularity to the liver contour is noted. The spleen, pancreas, gallbladder and adrenal glands are unrem arkable. The aorta demonstrates normal caliber and contour with diffuse atherosclerotic calcification s. There is no abdominal lymphadenopathy. There is a small hiatal hernia. Pelvis: The bowel is unremarkable, with no obstructive or inflammatory changes. There is diffuse sigm oid diverticulosis, without evidence of diverticulitis. The urinary bladder is within normal limits. There is no pelvic lymphadenopathy. A large amount of pelvic ascites is stable. Diffuse calcification s are seen throughout the uterus. The other pelvic structures appear unremarkable. A catheter is coil ed in the lower pelvis. Bones: There are no suspicious osseous abnormalities seen. There severe degenerative disc disease at L4/L5, with moderate disc osteophyte complex noted. Cystic degenerative changes are seen at L5. There is moderate degenerative disc disease at L5/S1. Impression: 1. No obstructive or inflammatory bowel changes. Diffuse sigmoid diverticulosis. 2. Large amount of abdominal and pelvic ascites. 3. Peritoneal catheter is coiled in the lower pelvis. 4. Chronic bilateral renal atrophy. 5. Mild cirrhosis. No focal hepatic masses. 6. Stable moderate diffuse atherosclerosis of the abdominal aorta. No evidence of aneurysm. 7. Small hiatal hernia. 8. Spondylosis with degenerative disc disease in the lumbar spine as described. 9. Stable calcified uterus, likely representing leiomyomas.
--- NOTE | 2017-06-16 20:00 | IPNPDOC ---
Subjective Date Seen The patient was seen on 06/16/17. Subjective Chief Complaint/HPI The patient is a 66-year-old female admitted with a reason for visit of Dehydration. Events since last encounter Patient sees bedside. She is receiving blood. Admits to still having nausea and vomiting. Denies any other changes. Constitutional: Denies: Chills, Fever Gastrointestinal: Reports: Nausea, Vomiting Objective Physical Examination General Exam: Positive: Alert, Cooperative, Mild Distress, Other (Laying on her right side. ) ENT Exam: Positive: Atraumatic Neck Exam: Positive: Supple Heart Exam: Positive: Rate Normal, Normal S1, Normal S2 Abdomen Exam: Positive: Normal bowel sounds, Soft Assessment /Plan Assessment Chronic kidney disease Patient is on peritoneal dialysis. Dr. Brown, nephrology has been consulted. Received 2 units of blood today. Dehydration Continue IV hydration. Encourage oral intake. Continue antiemetics. Electrolyte disturbances Replenish her consult with nephrology. Monitor and repeat labs in the morning. Calciphylaxis Continue current treatment plan. Nausea and vomiting Most likely secondary to sodium thiosulfate injections. Monitor. Continue with antinausea medications. Anemia Received packed red blood cells today. Repeat lab in the morning. Plan/VTE VTE Prophylaxis Ordered?: Yes VS, I&O, 24H, Fishbone Vital Signs/I&O Vital Signs Date Time Temp Pulse Resp B/P (MAP) Pulse Ox O2 Delivery O2 Flow Rate FiO2 06/16/17 13:08 Room Air 06/16/17 06:00 98.8 78 20 99/58 (72) 98 I&O- Last 24 Hours up to 6 AM 06/17/17 06:00 Intake Total 6332 ml Output Total 7630 ml Balance -1298 ml Laboratory Data 24H LABS Laboratory Tests 2 06/16/17 05:35: Nucleated Red Blood Cells % (auto) 0.0, Blood Urea Nitrogen 30H, Creatinine 10.60H, Sodium Level 142, Potassium Level 3.3L, Chloride Level 91L, Carbon Dioxide Level 21, Anion Gap 30H, Glomerular Filtration Rate 3.9L, Calcium Level 8.8, Phosphorus Level 6.7H, Magnesium Level 1.6L, Albumin 2.3L 06/16/17 17:04: CBC/BMP Laboratory Tests 06/16/17 05:35 Red Blood Count 2.38 L, Mean Corpuscular Volume 95.0 #, Mean Corpuscular Hemoglobin 32.8, Mean Corpuscular Hemoglobin Concent 34.5, Red Cell Distribution Width 21.8 H, Anion Gap 30 H GME ATTESTATION GME ATTESTATION My preceptor for this patient encounter was physically present in the building during the encounter and was fully available. As needed, all aspects of the patient interview, examination, medical decision making process, and medical care plan development were reviewed and approved by the preceptor. Preceptor is aware and concurs with the plan as stated in the body of this note and will attest to such by his/her cosignature. JOHNATHAN MARCIAL DO Jun 16, 2017 20:00
[2017-06-16] MEDS: KCL 20MEQ IN D5W 1000ML 1,000 ML IV SCH (20:12)
--- NOTE | 2017-06-16 21:10 | IPN ---
DATE: 06/16/2017 The patient is still quite nauseous today. No abdominal pain. No chest pain. She is not short of breath, although she does have some cough. Temperature 98.8, pulse 78, respiratory rate 20, blood pressure 99/58, 98% on room air. Intake and output notable for a positive fluid balance of 2846. She is awake, appropriately interactive, appears somewhat uncomfortable, sitting in bed and retching intermittently. Mucous membranes moist. Neck supple. Breathing is symmetrical, but diminished in the bases. Some upper airway sounds are noted. No wheezes, rales, or rhonchi. No accessory muscle use. Speaking in complete sentences. Heart is in a regular rate and rhythm, is borderline tachycardic on my exam. Abdomen is soft, hyperactive bowel sounds, nontender. White cell count 7.4, hemoglobin 7.8, platelets of 169, BUN 30, creatinine 10.6, potassium 3.3. My assessment is as follows: This is a 66-year-old with end-stage renal disease on peritoneal dialysis with adverse drug reaction to sodium thiosulfate with resulting hypernatremia and anemia. Plan is as follows: 1. Renal. I have discussed this case with Dr. Nabeel Brown, greatly appreciate her insights in the care of calciphylaxis. Patient may need to be switched to hemodialysis. Hypernatremia has resolved. Hypokalemia continues. Hypomagnesemia continues. 2. The patient has ongoing anemia which is most likely anemia of chronic kidney disease. Planned for more transfusions today. Stool for occult blood is pending. 3. The patient has calciphylaxis. 4. Deep venous thrombosis (DVT) prophylaxis is mechanical.
[2017-06-16 22:00] VITALS: BP 121/71
[2017-06-17 00:34] LABS: RBC BODY FLUID < 2000 10^3/uL (<2000)
[2017-06-17 00:35] LABS: BF DIFF IF INDICATED? NO (NO); WBC BODY FLUID 2 /uL (0-10)
[2017-06-17 06:00] VITALS: BP 108/58
[2017-06-17] MEDS: SODIUM CHLORIDE 0.9% INJ 10 ML SYR IV SCH ×2 (06:00→17:07)
[2017-06-17 06:10] LABS: MEAN CORPUSCULAR HEMOGLOBIN 31.3 pg (27.0-33.0); MEAN CORPUSCULAR HGB CONC 34.6 g/dl (32.0-36.5); MEAN CORPUSCULAR VOLUME 90.4 fl (80.0-96.0); PLATELET COUNT, AUTOMATED 165 10^3/uL (150-450); RED CELL DISTRIBUTION WIDTH 21.5 % (11.5-14.5); WHITE BLOOD COUNT 8.7 10^3/uL (4.0-10.0)
[2017-06-17 06:32] LABS: ALBUMIN 2.5 GM/DL (3.2-5.2); CALCIUM LEVEL 7.8 MG/DL (8.8-10.2); CREATININE FOR GFR 10.3 MG/DL (0.55-1.02); MAGNESIUM LEVEL 1.7 MG/DL (1.8-2.4); PHOSPHORUS LEVEL 5.9 MG/DL (2.5-4.9)
[2017-06-17] MEDS: KCL 20MEQ IN D5W 1000ML 1,000 ML IV SCH (06:33)
[2017-06-17] MEDS: (RENVELA) SEVELAMER **CARBONate** 800 MG TAB PO SCH ×3 (08:00→17:07)
[2017-06-17] MEDS: CINACALCET 30 MG TAB (SENSIPAR) PO SCH ×2 (08:19→20:39)
[2017-06-17] MEDS: MIDODRINE 5 MG TAB PO SCH ×3 (08:19→16:18)
[2017-06-17] MEDS: PROMETHAZINE INJ 25 MG/ML VIAL (J2550) IV PRN (08:19)
[2017-06-17] MEDS: CALCITRIOL 0.25 MCG CAP (S0169) PO SCH (08:19)
[2017-06-17] MEDS: METOCLOPRAMIDE INJ 10MG/2ML VIAL (J2765) IV PRN ×2 (11:00→17:03)
[2017-06-17] MEDS: POTASSIUM CHLORIDE 10 MEQ SR TABLET PO SCH ×3 (11:15→21:00)
[2017-06-17] MEDS: KCL 10MEQ IN 100ML SWI (KRUN) 10 MEQ in APPROPRIATE DILUENT 1 EA IV SCH ×4 (11:15→12:42)
[2017-06-17 14:00] VITALS: BP 121/63
--- NOTE | 2017-06-17 14:13 | IPN ---
DATE: 06/16/2018 SUBJECTIVE: The patient was seen this morning at the bedside. Her serum sodium has normalized to 142. She continues to complaint of intractable nausea and vomiting despite Zofran. Dr. Ramirez had started her on Phenergan for further control of her nausea. The patient continues on hypotonic fluids at present. She received 2 units of packed red blood cells yesterday and I have ordered a further 2 units for her today. She denies any shortness of breath or chest pain. Her is present at the bedside. REVIEW OF SYSTEMS: Positive for intractable nausea and vomiting. Review of systems is negative for fevers, chills, diarrhea, constipation, headaches, chest pain, palpitations, shortness of breath. Remainder of review of systems is negative. PHYSICAL EXAMINATION: VITAL SIGNS: Temperature 98.8, pulse 78, respiratory rate 20, blood pressure 99/58, saturating 98% on room air. Intake and output: The patient was in a positive fluid balance yesterday of 2.8 liters. She retained 1.1 liter from peritoneal dialysis. The patient is seen lying lateral recumbent in bed. is present. She is clutching an emesis bag. She appears fatigued but is in no acute distress. HEAD AND NECK: The patient is pale. Pupils are round and reactive. Her oral mucosa is moist. Her neck is supple. There is no jugular venous distention (JVD). CARDIAC: S1, S2. Regular rate. 2+ radial pulse. No edema in the extremities. RESPIRATORY: Bilaterally symmetric. The patient is comfortable on room air. ABDOMEN: Soft, nontender. There are bowel sounds present. The PD catheter exit was not examined today. NEUROLOGIC: There are no focal deficits. PSYCHIATRIC: Appropriate mood and affect. LABORATORY DATA: Sodium 142, potassium 3.3, calcium corrected is 10.2, phosphorous 6.7, magnesium 1.6, hemoglobin 7.8, platelets 169. Inpatient medications reviewed by myself. The patient's IV fluids are changed to D5W with 20 mEq of potassium chloride at 80 mL an hour. She received 1 gram of IV magnesium. She received 40 mEq of oral potassium. Her other medications are unchanged from prior. PLAN: 1. Intractable nausea and vomiting. The patient has had nausea and vomiting since starting sodium thiosulfate infusions on 05/25. She notes that the nausea worsens after having an infusion. She is receiving IV Zofran and Phenergan for her nausea and recurrent vomiting. I will also send off a PD cell count to rule out any peritonitis. We will also send for a CAT scan of the abdomen. 2. Hypernatremia, resolved. The patient has become hypernatremic secondary to sodium thiosulfate, as well as due to intractable nausea and vomiting. She has corrected nicely on D5W. I will continue her on hypotonic fluids at present due to ongoing nausea and vomiting. The patient is receiving all 1.5% Dianeal exchanges. However, she is ultrafiltrating on this, today thus far with 1 liter net ultrafiltration. 3. Hypokalemia. The patient received oral potassium. I have added potassium to her IV fluids as well. 4. End stage renal disease on peritoneal dialysis. The patient continues with five exchanges of 1.5% Dianeal with 2 liters for each exchange. 5. Calciphylaxis. The patient's sodium thiosulfate therapy has been complicated by recurrent nausea and vomiting and hypernatremia. I will likely hold her sodium thiosulfate infusion tomorrow. 6. Anemia. The patient received 2 unit packed red blood cell transfusion, but her hemoglobin did not appropriately correct. She went from 7 to 7.8, some of this may be dilutional. However, we will check stool for occult blood. She will be transfused another 2 units of packed red blood cells today. 7. Secondary hyperparathyroidism. The patient's elevated phosphorous and calcium are likely a chronic issue given that she has calciphylaxis. Continue on phos binders and Sensipar at this time. Plan of care was discussed with Dr. Ramirez. DANYELLE
[2017-06-17] MEDS ORDERED: POTASSIUM CHLORIDE INJ 40 MEQ in D5W 1,000 ML IV SCH (15:00)
[2017-06-17 20:40] VITALS: BP 132/78
[2017-06-17] MEDS ORDERED: POTASSIUM CHLORIDE 10% LIQ 20 MEQ/15 ML UDC PO ONE (22:00)
[2017-06-18] MEDS: SODIUM CHLORIDE 0.9% INJ 10 ML SYR IV SCH ×2 (05:25→05:43)
[2017-06-18 06:10] VITALS: BP 131/74
[2017-06-18 07:30] LABS: MEAN CORPUSCULAR HEMOGLOBIN 31.9 pg (27.0-33.0); MEAN CORPUSCULAR HGB CONC 34.9 g/dl (32.0-36.5); MEAN CORPUSCULAR VOLUME 91.6 fl (80.0-96.0); PLATELET COUNT, AUTOMATED 171 10^3/uL (150-450); RED CELL DISTRIBUTION WIDTH 20.8 % (11.5-14.5); WHITE BLOOD COUNT 10.8 10^3/uL (4.0-10.0)
[2017-06-18 07:42] LABS: ALBUMIN 2.4 GM/DL (3.2-5.2); CALCIUM LEVEL 7.5 MG/DL (8.8-10.2); CREATININE FOR GFR 9.85 MG/DL (0.55-1.02); GLOMERULAR FILTRATION RATE 4.2 (>45); MAGNESIUM LEVEL 1.4 MG/DL (1.8-2.4); PHOSPHORUS LEVEL 4.3 MG/DL (2.5-4.9); POTASSIUM SERUM 3.7 MEQ/L (3.5-5.1)
[2017-06-18] MEDS: (RENVELA) SEVELAMER **CARBONate** 800 MG TAB PO SCH ×2 (08:00→12:30)
[2017-06-18] MEDS: POTASSIUM CHLORIDE 10 MEQ SR TABLET PO SCH (09:00)
[2017-06-18] MEDS: CALCITRIOL 0.25 MCG CAP (S0169) PO SCH (09:59)
[2017-06-18] MEDS: MIDODRINE 5 MG TAB PO SCH ×3 (09:59→16:21)
[2017-06-18] MEDS: CINACALCET 30 MG TAB (SENSIPAR) PO SCH (10:24)
--- NOTE | 2017-06-18 11:55 | IPN ---
DATE: 06/17/2017 Ms. Myers is not feeling well this morning. She is quite nauseous. She has no abdominal pain. No chest pain, no shortness of breath. Is not eating. Temperature 98.8, pulse 83, respiratory rate 20, blood pressure 108/58, 94% on room air. Intake and output (I and Os) notable for negative fluid balance of -1212. Three bowel movements noted yesterday. He is awake, appropriately interactive. Appears uncomfortable. Mucous membranes are tachy. Neck supple. Breathing is symmetrical. Diminished. I to E ratio is 1:3. Heart is distant sounding. Normal S1, S2. Abdomen is soft, nontender. Nondistended. White cell count 8.7, hemoglobin 9.8. Platelets 165. BUN 32, creatinine 10.3, potassium is 3.0. ASSESSMENT: This is a 66-year-old with end-stage renal disease, on peritoneal dialysis with adverse drug reaction to sodium thiosulfate with resulting hypernatremia and anemia, both of which have resolved. PLAN: 1. Renal. The patient has calciphylaxis. May be switched to hemodialysis. The patient has had difficulty with hemodialysis in the past and is semi-resistant this idea. 2. The patient has hypokalemia which is repleted. 3. The patient has anemia. Status post transfusion. No further role for transfusion at this time. 4. The patient has calciphylaxis. 5. The patient has mechanical deep venous thrombosis (DVT) prophylaxis.
--- NOTE | 2017-06-18 12:30 | IPN ---
DATE OF SERVICE: 06/17/2017 SUBJECTIVE: The patient is seen this morning at the bedside. Her is present. The patient complains of ongoing nausea and vomiting that has continued to occur. She states she has not vomited so far this morning, but did feel queasy overnight. She has no interest in food at the present. She remains on IV fluids. He had a CAT scan done yesterday that was unrevealing. PD fluid seen at the bedside today is clear. REVIEW OF SYSTEMS: Positive for intractable nausea and vomiting and right inner thigh pain. Review of systems is negative for headache, dizziness, fevers, chills, abdominal pain, chest pain, palpitations, shortness of breath, diarrhea, constipation, lower extremity swelling. Remainder of review of systems is negative. PHYSICAL EXAMINATION: VITAL SIGNS: Temperature 98.8, pulse 83, respiratory rate 20, blood pressure 108/58, saturating 94% on room air. INTAKE AND OUTPUT: Ultrafiltration via peritoneal dialysis was net negative 2.5 liters and the patient is overall in a negative fluid balance for 1.2 liters in the past 24 hours. GENERAL: The patient is seen in bed lying flat. is present at the bedside. She appears fatigued, but not acutely ill. HEAD AND NECK: Extraocular muscles are intact. Her tongue is dry. Her neck is supple. There is no jugular venous distention (JVD). CARDIAC: S1, S2. Regular rate. 2+ radial pulse. No edema in the extremities. LUNGS: Clear to auscultation bilaterally. The patient is comfortable on room air. ABDOMEN: Soft, obese. Peritoneal dialysis ongoing. PD fluids are indwelling. Catheter site is not examed. Bowel sounds are present. NEUROLOGIC: There are no focal deficits. PSYCHIATRIC: Appropriate mood and affect. EXTREMITIES: Right inner thigh with tender discolored tissues. LABORATORIES: White count 8.7, hemoglobin 9.8, platelets 165. Sodium 137, potassium 3.0, bicarbonate 25, BUN 32, calcium corrected 9, phosphorous 5.9, magnesium 1.7. PD cell count only 2 WBCs. Stool occult blood negative. CT of abdomen and pelvis on 06/16/2017 with no obstructive bowel changes. Sigmoid diverticulosis present. Mild cirrhotic appearance of liver. Small hiatal hernia. INPATIENT MEDICATIONS: Reviewed by myself. The patient received two runs of IV potassium 20 mEq in total. Continues on D5W with potassium. Started on Reglan and Phenergan by Dr. Ramirez. Remainder of medications are unchanged from prior. PROBLEMS: 1. Intractable nausea and vomiting. The patient's nausea and vomiting started at the same time as her sodium thiosulfate infusions began. Thus far, the assumption is that her nausea and vomiting is related to the sodium thiosulfate infusion. She is receiving Zofran, Phenergan and Reglan. Continues to complain of nausea and poor by mouth intake. I am holding her sodium thiosulfate infusion today. Other possible causes for intractable nausea and vomiting have been considered and ruled out including peritonitis. The patient's PD cell count was inconsistent with peritonitis. Also obtained a CT scan of her abdomen and pelvis which did not show any acute findings for obstruction. We will continue to treat her symptomatically. Continue her on hypotonic fluids and antiemetics at present. 2. Calciphylaxis in the right medial thigh. She was started on sodium thiosulfate infusions three times weekly on 05/25/2017. Her treatment is held at present due to nausea and vomiting. 3. Anemia. The patient's hemoglobin is now acceptable status post four units of packed red blood cells. Fecal occult blood was negative. 4. End stage renal disease on peritoneal dialysis. She continues on five exchanges of 1.5% Dianeal. 5. Hypokalemia secondary to poor oral intake and dextrose containing fluids. She has received several runs of potassium IV and oral potassium supplementation and I will increase the potassium in her fluids to D5W with 40 mEq of KCl to run at 60 mL/hr. Plan of care was discussed with the patient's primary accident examiner, Dr. Henri Brown.
[2017-06-18 14:00] VITALS: BP 125/76
[2017-06-18] MEDS ORDERED: MAGNESIUM OXIDE 400 MG TAB (MAG-OX) PO ONE (14:00)
--- NOTE | 2017-06-18 14:20 | REP ---
Duplex extremity venous ultrasound: Bilateral lower extremities. History: Swelling. Question DVT. Findings: The deep veins are anechoic and fully compressible from the groin to the popliteal fossa in the left and right lower extremity. Color flow imaging is homogeneous. Spectral Doppler interrogation demonstrates intact respiratory variation in flow and normal manual augmentation of flow. There is no evidence of deep vein thrombosis. The patient's ability to tolerate a compression limited visualization and compression on two-dimensional scanning in the distal superficial femoral veins on the right side. Color flow is normal. Impression: Negative bilateral lower extremity duplex venous ultrasound. No evidence of deep vein thrombosis. Signed by Sacha Ferguson MD 06/18/2017 02:12 P
[2017-06-18] MEDS ORDERED: PROM25TA PO (14:45)
--- NOTE | 2017-06-19 14:31 | IPN ---
DATE: 06/18/2017 SUBJECTIVE: The patient was seen and examined at the bedside today morning. The patient's primary medical team was also present at the bedside. She reports that she wants to go home. Her nausea and vomiting is better. Her electrolytes are also improving. Her sodium is actually low today at 132. IV D5W was stopped. REVIEW OF SYSTEMS: The patient denies any fever, chills, rigors, headache. She reports her nausea and vomiting is better. She denies any chest pain or shortness of breath. She denies any pain in abdomen, constipation or diarrhea. She does report persistent right thigh pain because of calciphylaxis and she also reports bilateral lower extremity tenderness, but she denies any edema. The rest of review of systems is negative. OBJECTIVE: VITAL SIGNS: Temperature is 98.5 degrees Fahrenheit. Blood pressure is 131/74, pulse is 85, respiratory rate 20, saturating 97% on room air. Intake and output: Urine output is not recorded. She was 90 mL positive yesterday. 310 mL positive today since overnight with intake and output and PD fluid. Weight on the bed scale is not available. PHYSICAL EXAMINATION: GENERAL: The patient is awake, alert and oriented times three. Sitting in the bed. No apparent distress at this time. HEAD/NECK: Extraocular muscles intact. Pupils equally round and reactive to light. Mucous membranes are moist. Neck is supple. There is no jugular venous distention (JVD). CARDIOVASCULAR: S1, S2, regular rate. No murmur, rub or gallop. RESPIRATORY: Chest is clear to auscultation bilaterally. Bilateral equal air entry. No rales or rhonchi. ABDOMEN: Soft. Obese. Positive bowel sounds. No tenderness around te peritoneal dialysis catheter. MUSCULOSKELETAL: The patient has tender discolored calciphylaxis rash on the medial side of the right thigh. The patient also has palpable cordlike swelling of bilateral lower extremities which are tender as well. She does not have any lower extremity edema. CENTRAL NERVOUS SYSTEM: No focal neurological deficit. Power is 5/5 in all extremities. PSYCHIATRIC: Normal mood and affect. LAB REVIEW: CBC showed a WBC of 10.8, hemoglobin 9.9, platelets of 171. Peritoneal fluid cell count from 06/16/2017 was normal. BMP today showed sodium 132, potassium 3.7, chloride 59, bicarbonate is 24. BUN is 32. Creatinine is 9.8. Calcium 7.5, phosphorous is down to 4.3 now. Magnesium 1.4, albumin is 2.4. Microbiology: C. difficile PCR done yesterday was negative. CURRENT INPATIENT MEDICATIONS: The patient's medications were all reviewed by me. IV D5W was stopped today morning. Calcitriol was stopped as well and potassium chloride supplement was also stopped yesterday. There is no other change in the medications today apart from a dose of magnesium oxide 800 mg by mouth times one dose. ASSESSMENT: 66-year-old female with past medical history of end-stage renal disease, on peritoneal dialysis. Recently diagnosed with calciphylaxis who was started on sodium thiosulfate. He was admitted this time because of intractable nausea, vomiting and high anion gap metabolic acidosis. PLAN: 1. Nausea and vomiting. The patient's nausea and vomiting is improving now. Sodium thiosulfate has been stopped. She is symptomatically getting better. IV fluids have been stopped. CT scan of the abdomen did not show any abnormality. PD fluid was negative for infection. 2. Hypernatremia. The patient's hypernatremia has improved. She is actually hyponatremic today. IV D5W was stopped. 3. Calciphylaxis. The patient was started on sodium thiosulfate three times a week on 05/25/2017, however, she was unable to tolerate it because of intractable nausea and vomiting. Sodium thiosulfate is on hold at this time. The patient is not on Coumadin at this time. Calcitriol was stopped. Avoid further use of calcitriol, vitamin D or any vitamin D analogs because of calciphylaxis. Calcium level is normal. Phosphorous has also been normalized. The patient was advised to continue taking Renvela which each meal. 4. Secondary hyperparathyroidism. The patient's hyperparathyroidism is not optimized at this time. She is currently on Sensipar 30 mg by mouth twice a day. Continue current dose at this time. If PTS level does not decrease then Sensipar dose will be increased to 90 mg by mouth daily. She should not get any vitamin D analogs for secondary hyperparathyroidism because of calciphylaxis. 5. Anemia secondary to end-stage renal disease. The patient's hemoglobin is 9.9, which is acceptable at this time. The patient was given 40 units of packed red blood cells transfusion. I would give her a dose of Aranesp before she goes home. 6. End-stage renal disease. On peritoneal dialysis. Continue manual exchanges. All 1.5% because of recent history of volume depletion and nausea and vomiting. 7. Lower extremity pain and tenderness. The patient needs to get Doppler of the lower extremity done to rule out deep venous thrombosis (DVT). 8. Discharge planning. The patient is adamant that she wants to go home today. I recommend that we at least rule out DVT before sending the patient home and she will need to followup at [facility] center next week after discharge from the hospital. Plan of care was discussed with the patient and with the primary team, hospitalist, Dr. Danny Ramirez.
--- NOTE | 2017-06-20 19:19 | DSES ---
DATE OF ADMISSION: 06/15/2017 DATE OF DISCHARGE: 06/18/2017 SPECIALISTS INVOLVED IN CARE: Dr. Brown, Dr. Blank. COMPLICATIONS: None. PROCEDURES PERFORMED: None. DISCHARGE DIAGNOSES: Symptomatic anemia. Adverse drug reaction. Hyponatremia. Calciphylaxis. Recurrent peritonitis by history. Hyperlipidemia. Hyperparathyroidism. Chronic kidney disease on peritoneal dialysis. FOLLOWING IS SUMMARY OF HER PRESENTATION: 66-year-old on peritoneal dialysis with a history of calciphylaxis who has been on sodium thiosulfate. She has not been tolerating this well. She has had decreasing oral intake, nausea, vomiting, had developed hypernatremia and symptomatic anemia, was admitted to the hospitalist service, was consented for blood, receiving four units of packed red blood cells. She received free water and improved, Unfortunately she does not appear to tolerate sodium thiosulfate. She has she has gotten to the point where she is tolerating some diet. She is u and moving around and wants to go home. She is seen at bed side today with Dr. Blank. There was some concerns about some induration in her legs, lower extremity Doppler was negative bilaterally. This most likely represents calciphylaxis. On day of discharge, temperature is 98.5, pulse 85, respiratory rate 20, blood pressure 131/7, 97% on room air, Ins and Outs notable for a positive fluid balance of 90. Three bowel movements yesterday. White cell count 10.8, hemoglobin 9.9, creatinine 9.85. Lower extremity Doppler negative. DISCHARGE INSTRUCTIONS INCLUDE THE FOLLOWING: Followup with peritoneal dialysis clinic. She will need to call the office for follow up appointment this week. Activity as tolerated. Diet as tolerated. She is given a prescription for promethazine 25 mg every 6 hours as needed for nausea or vomiting. Sensipar 30 mg by mouth twice daily. Fish oil twice daily. Gabapentin 100 mg three times a day. Midodrine 10 mg by mouth three times a day. Zofran every 6 hours as needed for nausea. Percocet one tablet every 6 hours as needed for pain. Red yeast rice as deemed clinically necessary. Renvela 3200 ng by mouth as needed. Discontinue Calcitriol. Discontinue Vitamin D supplementation.
== END 2017-06-18 16:40 | disposition home or self-care (01) | DRG 391 ==
LOC: M MSPAV 11:12
PROVIDERS: ADMIT Internal Medicine; ATTEND Internal Medicine
PROC: 30233N1 Transfusion of Nonautologous Red Blood Cells into Peripheral Vein, Percutaneous Approach (ICD-10-PCS; principal; 2017-06-15)
DX: R11.2 Nausea with vomiting, unspecified (principal); N18.6 End stage renal disease; N25.81 Secondary hyperparathyroidism of renal origin; E87.0 Hyperosmolality and hypernatremia; E86.0 Dehydration; E83.59 Other disorders of calcium metabolism; E78.5 Hyperlipidemia, unspecified; D63.1 Anemia in chronic kidney disease; Z88.1 Allergy status to other antibiotic agents; Z88.8 Allergy status to other drugs, medicaments and biological substances; Z99.2 Dependence on renal dialysis; Z87.440 Personal history of urinary (tract) infections; Z87.891 Personal history of nicotine dependence; Z79.899 Other long term (current) drug therapy; E87.6 Hypokalemia

== ENCOUNTER → 2017-06-23 | Outpatient (CLI) | payer MEDICARE ==
[~2017-06-23] MED LIST changes: +MIDO10TA PO; +PROM25TA PO; +ZOFR20TA PO
--- NOTE | 2017-06-23 12:13 | REP ---
PA and lateral chest: Comparison is 03/09/2017. There is chronic cardiomegaly, unchanged. The sandra, mediastinum, bony thorax are unchanged and unremarkable. Impression: Chronic cardiomegaly, otherwise negative PA and lateral chest. Signed by Jonas Kumar MD 06/23/2017 12:05 P
== END ==
LOC: M SMT 10:15
PROVIDERS: ATTEND Internal Medicine Nephrology
DX: Z18.89 Other specified retained foreign body fragments (principal); I51.7 Cardiomegaly
CPT/HCPCS: 71020; G0463

== ENCOUNTER 2017-09-05 12:14 | Outpatient (CLI) | payer MEDICARE ==
[2017-09-05 17:43] LABS: IMMEDIATE SPIN CROSSMATCH 1 2
== END 2017-09-05 20:15 | disposition home or self-care (01) ==
LOC: M OPCLI4PR 12:14 → M MS4PR 12:19 → M OPCLI4PR 20:15
DX: D50.0 Iron deficiency anemia secondary to blood loss (chronic) (principal); Z88.8 Allergy status to other drugs, medicaments and biological substances; Z88.1 Allergy status to other antibiotic agents; Z79.899 Other long term (current) drug therapy
CPT/HCPCS: 36430

== ENCOUNTER 2017-12-21 07:38 | Outpatient (CLI) | payer MEDICARE ==
[2017-12-21 09:15] LABS: IMMEDIATE SPIN CROSSMATCH 1 2
== END 2017-12-21 13:45 | disposition home or self-care (01) ==
LOC: M INFU 07:38
DX: D50.0 Iron deficiency anemia secondary to blood loss (chronic) (principal); J45.909 Unspecified asthma, uncomplicated; Z79.899 Other long term (current) drug therapy; Z88.8 Allergy status to other drugs, medicaments and biological substances; Z85.528 Personal history of other malignant neoplasm of kidney; Z99.2 Dependence on renal dialysis; Z87.891 Personal history of nicotine dependence
CPT/HCPCS: 36430

== ENCOUNTER 2018-02-03 11:47 | Inpatient (IN) | payer MEDICARE ==
[2018-02-03] MEDS: CLOPIDOGREL 75 MG TAB PO (09:00)
[2018-02-03] MEDS: ASPIRIN 81 MG ENTERIC TAB PO (09:00)
[2018-02-03 13:01] LABS: BASO % 0.3 % (0.0-1.0); EOS # 0.2 10^3/uL (0.0-0.50); EOS % 2.1 % (0.0-3.0); HEMATOCRIT 21.9 % (36.0-47.0); HEMOGLOBIN 7.2 g/dl (12.0-15.5); IMMATURE GRANULOCYTE % 2.3 % (0-3.0); LYMPH % 9.8 % (24.0-44.0); MEAN CORPUSCULAR HEMOGLOBIN 34.4 pg (27.0-33.0); MEAN CORPUSCULAR HGB CONC 32.9 g/dl (32.0-36.5); MEAN CORPUSCULAR VOLUME 104.8 fl (80.0-96.0); MONO % 10.5 % (0.0-5.0); NEUTROPHILS # 7.3 10^3/uL (1.8-7.7); PLATELET COUNT, AUTOMATED 217 10^3/uL (150-450); RED BLOOD COUNT 2.09 10^6/uL (4.00-5.40); RED CELL DISTRIBUTION WIDTH 17.9 % (11.5-14.5); WHITE BLOOD COUNT 9.7 10^3/uL (4.0-10.0)
[2018-02-03 13:19] LABS: INR 1.08; PROTHROMBIN TIME 14.2 SECONDS (12.4-14.5)
[2018-02-03 13:20] LABS: PARTIAL THROMBOPLASTIN TIME 35.4 SECONDS (26.8-37.9)
[2018-02-03] MEDS: fentaNYL 100 MCG/2 ML INJECTION (J3010) IV ×2 (13:24→14:55)
[2018-02-03 13:27] LABS: ALBUMIN 2.4 GM/DL (3.2-5.2); ALBUMIN/GLOBULIN RATIO 0.56 (1.00-1.93); ALKALINE PHOSPHATASE 87 U/L (45-117); ALT/SGPT 17 U/L (12-78); AMYLASE 139 U/L (25-115); ANION GAP 17 MEQ/L (8-16); AST/SGOT 29 U/L (7-37); BILIRUBIN,DIRECT 0.2 MG/DL (0.0-0.2); BILIRUBIN,TOTAL 0.4 MG/DL (0.2-1.0); BLOOD UREA NITROGEN 35 MG/DL (7-18); CALCIUM LEVEL 8.6 MG/DL (8.8-10.2); CARBON DIOXIDE LEVEL 25 MEQ/L (21-32); CHLORIDE LEVEL 102 MEQ/L (98-107); CK-MB VALUE MASS 4.5 NG/ML (<3.6); CPK CREATINE PHOSPHOKINASE 318 U/L (26-192); GLOMERULAR FILTRATION RATE 3.6 (>45); GLUCOSE, FASTING 114 MG/DL (70-100); LIPASE 373 U/L (73-393); MB/CK RELATIVE INDEX 1.41 (< OR =4); POTASSIUM SERUM 3.4 MEQ/L (3.5-5.1); SODIUM LEVEL 144 MEQ/L (136-145); TOTAL PROTEIN 6.7 GM/DL (6.4-8.2); TROPONIN I 0.04 NG/ML (< 0.10)
[2018-02-03 13:34] LABS: LACTIC ACID SEPSIS PROTOCOL 4.7 MMOL/L (0.4-2.0)
[2018-02-03] MEDS: GASTROGRAFIN SOLUTION 30ML PO ×2 (14:15→14:45)
[2018-02-03] MEDS: ONDANSETRON 4MG/2ML VIAL (J2405) IV (14:55)
[2018-02-03 18:12] LABS: IMMEDIATE SPIN CROSSMATCH 1 2
[2018-02-03 19:08] LABS: FERRITIN 1922 NG/ML (8-252); IRON (FE) 70 UG/DL (50-170); PERCENT SATURATION 38.9 % (13.2-45.0); TOTAL IRON BINDING CAPACITY 180 UG/DL (250-450)
[2018-02-03 19:13] LABS: VITAMIN B12 LEVEL 528 PG/ML (247-911)
[2018-02-03 19:19] LABS: FOLATE 13.2 NG/ML (>5.4)
[2018-02-03] MEDS: PERCOCET 5MG/325MG TAB PO (21:15)
[2018-02-03] MEDS: HEPARIN SOD (PORCINE) 5000 UNITS/ML VIAL SC (22:00)
[2018-02-04] MEDS: PERCOCET 5MG/325MG TAB PO ×3 (01:44→23:32)
[2018-02-04] MEDS: CEFTAROLINE FOSAMIL 200 MG in D5W 50 ML IV ×2 (01:45→08:48)
[2018-02-04 04:36] LABS: HEMATOCRIT 21.5 % (36.0-47.0); HEMOGLOBIN 7.1 g/dl (12.0-15.5); MEAN CORPUSCULAR HEMOGLOBIN 33.2 pg (27.0-33.0); MEAN CORPUSCULAR VOLUME 100.5 fl (80.0-96.0); PLATELET COUNT, AUTOMATED 183 10^3/uL (150-450); RED BLOOD COUNT 2.14 10^6/uL (4.00-5.40); RED CELL DISTRIBUTION WIDTH 20.1 % (11.5-14.5); WHITE BLOOD COUNT 8.5 10^3/uL (4.0-10.0)
[2018-02-04 04:50] LABS: PHOSPHORUS LEVEL 7.7 MG/DL (2.5-4.9)
[2018-02-04 04:54] LABS: ALBUMIN 2.1 GM/DL (3.2-5.2); ALBUMIN/GLOBULIN RATIO 0.66 (1.00-1.93); ALKALINE PHOSPHATASE 83 U/L (45-117); ALT/SGPT 17 U/L (12-78); ANION GAP 11 MEQ/L (8-16); AST/SGOT 25 U/L (7-37); BILIRUBIN,TOTAL 0.4 MG/DL (0.2-1.0); BLOOD UREA NITROGEN 43 MG/DL (7-18); CALCIUM LEVEL 7.8 MG/DL (8.8-10.2); CARBON DIOXIDE LEVEL 29 MEQ/L (21-32); CHLORIDE LEVEL 101 MEQ/L (98-107); GLOMERULAR FILTRATION RATE 3.3 (>45); GLUCOSE, FASTING 75 MG/DL (70-100); MAGNESIUM LEVEL 1.5 MG/DL (1.8-2.4); POTASSIUM SERUM 3.9 MEQ/L (3.5-5.1); SODIUM LEVEL 141 MEQ/L (136-145); TOTAL PROTEIN 5.3 GM/DL (6.4-8.2)
[2018-02-04] MEDS: MIDODRINE 5 MG TAB PO ×3 (06:03→18:09)
[2018-02-04] MEDS: HEPARIN SOD (PORCINE) 5000 UNITS/ML VIAL SC ×3 (06:04→21:13)
[2018-02-04] MEDS: ACETAMINOPHEN TAB 650MG DOSE (2X325MG) PO (06:05)
[2018-02-04 07:15] LABS: BF MONONUCLEAR CELL % 81.5 % (0-0); BF POLYMORPHONUCLEAR CELL % 18.5 % (0-0); RBC BODY FLUID < 2 10^3/uL (<2); WBC BODY FLUID 70 /uL (0-10)
[2018-02-04 07:20] LABS: APPEARANCE, BODY FLUID CLEAR (CLEAR); BF DIFF IF INDICATED? YES (NO); PERITONEAL DIALYSATE FL COLOR PALE YELLOW (COLORLESS); SOURCE, BODY FLUID PERITONEAL DIALYSATE
[2018-02-04] MEDS: ASPIRIN 81 MG ENTERIC TAB PO (08:48)
[2018-02-04] MEDS: CLOPIDOGREL 75 MG TAB PO (08:48)
[2018-02-04] MEDS: MAG SULF 1GM/100ML (MAG RUN) 1 GM in APPROPRIATE DILUENT 1 EA IV (08:48)
[2018-02-04] MEDS: ATORVASTATIN 20 MG TAB PO (08:48)
[2018-02-04 09:09] LABS: HEMATOCRIT 22.2 % (36.0-47.0); HEMOGLOBIN 7.6 g/dl (12.0-15.5); MEAN CORPUSCULAR HEMOGLOBIN 34.2 pg (27.0-33.0); MEAN CORPUSCULAR HGB CONC 34.2 g/dl (32.0-36.5); PLATELET COUNT, AUTOMATED 210 10^3/uL (150-450); RED BLOOD COUNT 2.22 10^6/uL (4.00-5.40); RED CELL DISTRIBUTION WIDTH 20.1 % (11.5-14.5); WHITE BLOOD COUNT 10.9 10^3/uL (4.0-10.0)
[2018-02-04 09:40] LABS: ALBUMIN 2.2 GM/DL (3.2-5.2); ALBUMIN/GLOBULIN RATIO 0.71 (1.00-1.93); ALKALINE PHOSPHATASE 83 U/L (45-117); ALT/SGPT 14 U/L (12-78); ANION GAP 13 MEQ/L (8-16); AST/SGOT 26 U/L (7-37); BILIRUBIN,TOTAL 0.4 MG/DL (0.2-1.0); BLOOD UREA NITROGEN 41 MG/DL (7-18); CALCIUM LEVEL 7.8 MG/DL (8.8-10.2); CARBON DIOXIDE LEVEL 29 MEQ/L (21-32); CHLORIDE LEVEL 102 MEQ/L (98-107); GLOMERULAR FILTRATION RATE 3.4 (>45); GLUCOSE, FASTING 109 MG/DL (70-100); MAGNESIUM LEVEL 1.6 MG/DL (1.8-2.4); POTASSIUM SERUM 3.8 MEQ/L (3.5-5.1); SODIUM LEVEL 144 MEQ/L (136-145); TOTAL PROTEIN 5.3 GM/DL (6.4-8.2)
[2018-02-04] MEDS: MORPHINE 4 MG/ML 1ML VIAL/SYRINGE (J2270) IV (10:41)
[2018-02-04] MEDS: LANTHANUM CARBONATE 500 MG CHEW TABLET PO ×2 (12:17→18:09)
[2018-02-04] MEDS: ONDANSETRON 4MG/2ML VIAL (J2405) IV ×2 (13:17→21:12)
[2018-02-04 14:58] LABS: CK-MB VALUE MASS 5.2 NG/ML (<3.6); CPK CREATINE PHOSPHOKINASE 336 U/L (26-192); MB/CK RELATIVE INDEX 1.54 (< OR =4); TROPONIN I 0.04 NG/ML (< 0.10)
[2018-02-04 14:59] LABS: LACTIC ACID SEPSIS PROTOCOL 2.1 MMOL/L (0.4-2.0)
[2018-02-04 15:00] LABS: BASO % 0.4 % (0.0-1.0); EOS # 0.3 10^3/uL (0.0-0.50); EOS % 2.3 % (0.0-3.0); HEMOGLOBIN 8.2 g/dl (12.0-15.5); IMMATURE GRANULOCYTE % 1.9 % (0-3.0); LYMPH # 0.9 10^3/uL (1.5-4.5); LYMPH % 8.1 % (24.0-44.0); MEAN CORPUSCULAR HEMOGLOBIN 33.9 pg (27.0-33.0); MEAN CORPUSCULAR HGB CONC 34.2 g/dl (32.0-36.5); MEAN CORPUSCULAR VOLUME 99.2 fl (80.0-96.0); MONO % 8.9 % (0.0-5.0); NEUTROPHILS # 8.9 10^3/uL (1.8-7.7); NEUTROPHILS % 78.4 % (36.0-66.0); PLATELET COUNT, AUTOMATED 229 10^3/uL (150-450); RED BLOOD COUNT 2.42 10^6/uL (4.00-5.40); RED CELL DISTRIBUTION WIDTH 19.9 % (11.5-14.5); WHITE BLOOD COUNT 11.3 10^3/uL (4.0-10.0)
[2018-02-04] MEDS ORDERED: MEROPENEM INJ 1 GM in APPROPRIATE DILUENT 1 EA IV (15:15)
[2018-02-04] MEDS: MEROPENEM INJ 500 MG in APPROPRIATE DILUENT 1 EA IV (17:24)
[2018-02-04] MEDS: LINEZOLID 600 MG in APPROPRIATE DILUENT 1 EA IV (18:09)
[2018-02-04 19:13] LABS: CK-MB VALUE MASS 5.2 NG/ML (<3.6); CPK CREATINE PHOSPHOKINASE 319 U/L (26-192); MB/CK RELATIVE INDEX 1.63 (< OR =4); TROPONIN I 0.05 NG/ML (< 0.10)
[2018-02-04] MEDS ORDERED: MORPHINE 4 MG/ML 1ML VIAL/SYRINGE (J2270) IV (21:30)
[2018-02-05 04:46] LABS: HEMATOCRIT 22.8 % (36.0-47.0); HEMOGLOBIN 7.7 g/dl (12.0-15.5); MEAN CORPUSCULAR HEMOGLOBIN 33.6 pg (27.0-33.0); MEAN CORPUSCULAR HGB CONC 33.8 g/dl (32.0-36.5); MEAN CORPUSCULAR VOLUME 99.6 fl (80.0-96.0); PLATELET COUNT, AUTOMATED 215 10^3/uL (150-450); RED BLOOD COUNT 2.29 10^6/uL (4.00-5.40); RED CELL DISTRIBUTION WIDTH 19.3 % (11.5-14.5); WHITE BLOOD COUNT 10.7 10^3/uL (4.0-10.0)
[2018-02-05 05:10] LABS: LACTIC ACID SEPSIS PROTOCOL 1.7 MMOL/L (0.4-2.0)
[2018-02-05 05:23] LABS: ALBUMIN 2.1 GM/DL (3.2-5.2); ALBUMIN/GLOBULIN RATIO 0.66 (1.00-1.93); ALKALINE PHOSPHATASE 82 U/L (45-117); ALT/SGPT 17 U/L (12-78); ANION GAP 12 MEQ/L (8-16); AST/SGOT 34 U/L (7-37); BILIRUBIN,TOTAL 0.4 MG/DL (0.2-1.0); BLOOD UREA NITROGEN 45 MG/DL (7-18); C REACTIVE PROTEIN QUANTITATIV 7.52 MG/DL (0.00-0.30); CALCIUM LEVEL 7.6 MG/DL (8.8-10.2); CARBON DIOXIDE LEVEL 30 MEQ/L (21-32); CHLORIDE LEVEL 98 MEQ/L (98-107); GLOMERULAR FILTRATION RATE 3.6 (>45); GLUCOSE, FASTING 83 MG/DL (70-100); MAGNESIUM LEVEL 1.8 MG/DL (1.8-2.4); POTASSIUM SERUM 3.7 MEQ/L (3.5-5.1); SODIUM LEVEL 140 MEQ/L (136-145); TOTAL PROTEIN 5.3 GM/DL (6.4-8.2)
[2018-02-05] MEDS: HEPARIN SOD (PORCINE) 5000 UNITS/ML VIAL SC ×3 (06:02→22:25)
[2018-02-05] MEDS: MIDODRINE 5 MG TAB PO ×3 (06:02→17:25)
[2018-02-05] MEDS: LINEZOLID 600 MG in APPROPRIATE DILUENT 1 EA IV ×2 (06:07→18:11)
[2018-02-05] MEDS: ATORVASTATIN 20 MG TAB PO (09:59)
[2018-02-05] MEDS: LANTHANUM CARBONATE 500 MG CHEW TABLET PO ×3 (09:59→17:25)
[2018-02-05] MEDS: PERCOCET 5MG/325MG TAB PO (09:59)
[2018-02-05] MEDS: METOCLOPRAMIDE INJ 10MG/2ML VIAL (J2765) IV (10:00)
[2018-02-05] MEDS: CLOPIDOGREL 75 MG TAB PO (10:00)
[2018-02-05] MEDS: ASPIRIN 81 MG ENTERIC TAB PO (10:00)
[2018-02-05 13:48] LABS: IMMEDIATE SPIN CROSSMATCH 1 1
[2018-02-05] MEDS: PROMETHAZINE INJ 25 MG/ML VIAL (J2550) IV (17:25)
[2018-02-05] MEDS: MEROPENEM INJ 500 MG in APPROPRIATE DILUENT 1 EA IV (17:25)
[2018-02-05 18:10] LABS: HEMATOCRIT 26.9 % (36.0-47.0); HEMOGLOBIN 9.3 g/dl (12.0-15.5); MEAN CORPUSCULAR HEMOGLOBIN 33.5 pg (27.0-33.0); MEAN CORPUSCULAR HGB CONC 34.6 g/dl (32.0-36.5); MEAN CORPUSCULAR VOLUME 96.8 fl (80.0-96.0); PLATELET COUNT, AUTOMATED 229 10^3/uL (150-450); RED BLOOD COUNT 2.78 10^6/uL (4.00-5.40); RED CELL DISTRIBUTION WIDTH 18.8 % (11.5-14.5); WHITE BLOOD COUNT 11.9 10^3/uL (4.0-10.0)
[2018-02-06] MEDS: HEPARIN SOD (PORCINE) 5000 UNITS/ML VIAL SC ×3 (05:40→21:26)
[2018-02-06] MEDS: LINEZOLID 600 MG in APPROPRIATE DILUENT 1 EA IV ×2 (05:40→18:09)
[2018-02-06 05:56] LABS: HEMATOCRIT 27.3 % (36.0-47.0); HEMOGLOBIN 9.4 g/dl (12.0-15.5); MEAN CORPUSCULAR HEMOGLOBIN 32.9 pg (27.0-33.0); MEAN CORPUSCULAR HGB CONC 34.4 g/dl (32.0-36.5); MEAN CORPUSCULAR VOLUME 95.5 fl (80.0-96.0); PLATELET COUNT, AUTOMATED 253 10^3/uL (150-450); RED BLOOD COUNT 2.86 10^6/uL (4.00-5.40); RED CELL DISTRIBUTION WIDTH 18.8 % (11.5-14.5); WHITE BLOOD COUNT 14.4 10^3/uL (4.0-10.0)
[2018-02-06 06:28] LABS: ALBUMIN 2.1 GM/DL (3.2-5.2); ALBUMIN/GLOBULIN RATIO 0.51 (1.00-1.93); ALKALINE PHOSPHATASE 87 U/L (45-117); ALT/SGPT 17 U/L (12-78); ANION GAP 13 MEQ/L (8-16); AST/SGOT 32 U/L (7-37); BILIRUBIN,TOTAL 0.6 MG/DL (0.2-1.0); BLOOD UREA NITROGEN 42 MG/DL (7-18); C REACTIVE PROTEIN QUANTITATIV 6.26 MG/DL (0.00-0.30); CALCIUM LEVEL 8.4 MG/DL (8.8-10.2); CARBON DIOXIDE LEVEL 27 MEQ/L (21-32); CHLORIDE LEVEL 96 MEQ/L (98-107); GLOMERULAR FILTRATION RATE 3.8 (>45); GLUCOSE, FASTING 82 MG/DL (70-100); MAGNESIUM LEVEL 1.8 MG/DL (1.8-2.4); POTASSIUM SERUM 3.4 MEQ/L (3.5-5.1); SODIUM LEVEL 136 MEQ/L (136-145); TOTAL PROTEIN 6.2 GM/DL (6.4-8.2)
[2018-02-06] MEDS: MIDODRINE 5 MG TAB PO ×3 (06:45→18:08)
[2018-02-06] MEDS: ACETAMINOPHEN TAB 650MG DOSE (2X325MG) PO (08:33)
[2018-02-06] MEDS: LANTHANUM CARBONATE 500 MG CHEW TABLET PO ×3 (08:34→18:00)
[2018-02-06] MEDS: ASPIRIN 81 MG ENTERIC TAB PO (08:34)
[2018-02-06] MEDS: CLOPIDOGREL 75 MG TAB PO (08:34)
[2018-02-06] MEDS: CINACALCET 30 MG TAB (SENSIPAR) PO (08:34)
[2018-02-06] MEDS: ATORVASTATIN 20 MG TAB PO (08:34)
[2018-02-06] MEDS: POTASSIUM CHLORIDE 10 MEQ SR TABLET PO (09:52)
[2018-02-06 09:58] LABS: PTH INTACT 546.5 PG/ML (18.5-88.0)
[2018-02-06 09:59] LABS: PHOSPHORUS LEVEL 6.3 MG/DL (2.5-4.9)
[2018-02-06] MEDS: PROMETHAZINE INJ 25 MG/ML VIAL (J2550) IV (11:09)
[2018-02-06] MEDS: MEROPENEM INJ 500 MG in APPROPRIATE DILUENT 1 EA IV (18:09)
[2018-02-07 05:43] LABS: HEMATOCRIT 25.7 % (36.0-47.0); HEMOGLOBIN 8.9 g/dl (12.0-15.5); MEAN CORPUSCULAR HEMOGLOBIN 33.2 pg (27.0-33.0); MEAN CORPUSCULAR HGB CONC 34.6 g/dl (32.0-36.5); MEAN CORPUSCULAR VOLUME 95.9 fl (80.0-96.0); PLATELET COUNT, AUTOMATED 245 10^3/uL (150-450); RED BLOOD COUNT 2.68 10^6/uL (4.00-5.40); RED CELL DISTRIBUTION WIDTH 18.4 % (11.5-14.5); WHITE BLOOD COUNT 11.9 10^3/uL (4.0-10.0)
[2018-02-07 06:02] LABS: ALKALINE PHOSPHATASE 87 U/L (45-117); ALT/SGPT 17 U/L (12-78); ANION GAP 15 MEQ/L (8-16); AST/SGOT 27 U/L (7-37); BILIRUBIN,TOTAL 0.4 MG/DL (0.2-1.0); BLOOD UREA NITROGEN 43 MG/DL (7-18); C REACTIVE PROTEIN QUANTITATIV 8.48 MG/DL (0.00-0.30); CALCIUM LEVEL 7.6 MG/DL (8.8-10.2); CARBON DIOXIDE LEVEL 27 MEQ/L (21-32); CHLORIDE LEVEL 93 MEQ/L (98-107); GLOMERULAR FILTRATION RATE 3.9 (>45); GLUCOSE, FASTING 84 MG/DL (70-100); MAGNESIUM LEVEL 1.5 MG/DL (1.8-2.4); POTASSIUM SERUM 3.3 MEQ/L (3.5-5.1); SODIUM LEVEL 135 MEQ/L (136-145)
[2018-02-07] MEDS: MIDODRINE 5 MG TAB PO ×3 (06:36→17:28)
[2018-02-07] MEDS: HEPARIN SOD (PORCINE) 5000 UNITS/ML VIAL SC ×3 (06:36→22:00)
[2018-02-07] MEDS: LINEZOLID 600 MG in APPROPRIATE DILUENT 1 EA IV ×2 (06:36→17:19)
[2018-02-07] MEDS: LANTHANUM CARBONATE 500 MG CHEW TABLET PO ×3 (08:00→17:28)
[2018-02-07] MEDS: MAG SULF 1GM/100ML (MAG RUN) 1 GM in APPROPRIATE DILUENT 1 EA IV (09:07)
[2018-02-07] MEDS: POTASSIUM CHLORIDE 10 MEQ SR TABLET PO ×2 (09:08→22:00)
[2018-02-07] MEDS: ATORVASTATIN 20 MG TAB PO (09:09)
[2018-02-07] MEDS: CLOPIDOGREL 75 MG TAB PO (09:09)
[2018-02-07] MEDS: ASPIRIN 81 MG ENTERIC TAB PO (09:09)
[2018-02-07] MEDS: DARBEPOETIN 100 MCG/0.5 ML *NON-DIALYSIS* SYRINGE (J0881) SC (10:39)
[2018-02-07] MEDS: PROMETHAZINE INJ 25 MG/ML VIAL (J2550) IV (10:46)
[2018-02-07] MEDS: PERCOCET 5MG/325MG TAB PO (12:56)
[2018-02-07] MEDS: ACETAMINOPHEN TAB 650MG DOSE (2X325MG) PO (16:23)
[2018-02-07] MEDS: MEROPENEM INJ 500 MG in APPROPRIATE DILUENT 1 EA IV (16:23)
[2018-02-07] MEDS: SANTYL OINT 30GM TOP (17:19)
[2018-02-07] MEDS: DIAPER RELIEF PASTE (DESITIN) 60GM TOP (17:20)
[2018-02-08] MEDS: PERCOCET 5MG/325MG TAB PO ×3 (01:41→22:31)
[2018-02-08] MEDS: HEPARIN SOD (PORCINE) 5000 UNITS/ML VIAL SC ×3 (05:57→21:44)
[2018-02-08] MEDS: LINEZOLID 600 MG in APPROPRIATE DILUENT 1 EA IV ×2 (05:57→17:59)
[2018-02-08] MEDS: MIDODRINE 5 MG TAB PO ×3 (06:12→17:59)
[2018-02-08 07:45] LABS: HEMATOCRIT 25.3 % (36.0-47.0); HEMOGLOBIN 8.6 g/dl (12.0-15.5); MEAN CORPUSCULAR HEMOGLOBIN 33.2 pg (27.0-33.0); MEAN CORPUSCULAR VOLUME 97.7 fl (80.0-96.0); PLATELET COUNT, AUTOMATED 237 10^3/uL (150-450); RED BLOOD COUNT 2.59 10^6/uL (4.00-5.40); RED CELL DISTRIBUTION WIDTH 18.1 % (11.5-14.5); WHITE BLOOD COUNT 10.6 10^3/uL (4.0-10.0)
[2018-02-08 07:59] LABS: ALBUMIN 2.1 GM/DL (3.2-5.2); ALBUMIN/GLOBULIN RATIO 0.64 (1.00-1.93); ALKALINE PHOSPHATASE 91 U/L (45-117); ALT/SGPT 14 U/L (12-78); ANION GAP 13 MEQ/L (8-16); AST/SGOT 25 U/L (7-37); BILIRUBIN,TOTAL 0.4 MG/DL (0.2-1.0); BLOOD UREA NITROGEN 44 MG/DL (7-18); C REACTIVE PROTEIN QUANTITATIV 8.26 MG/DL (0.00-0.30); CALCIUM LEVEL 7.6 MG/DL (8.8-10.2); CARBON DIOXIDE LEVEL 27 MEQ/L (21-32); CHLORIDE LEVEL 94 MEQ/L (98-107); GLOMERULAR FILTRATION RATE 3.9 (>45); GLUCOSE, FASTING 120 MG/DL (70-100); MAGNESIUM LEVEL 1.8 MG/DL (1.8-2.4); POTASSIUM SERUM 3.7 MEQ/L (3.5-5.1); SODIUM LEVEL 134 MEQ/L (136-145); TOTAL PROTEIN 5.4 GM/DL (6.4-8.2)
[2018-02-08] MEDS: ONDANSETRON 4MG/2ML VIAL (J2405) IV ×2 (08:49→17:20)
[2018-02-08] MEDS: ASPIRIN 81 MG ENTERIC TAB PO (08:50)
[2018-02-08] MEDS: ATORVASTATIN 20 MG TAB PO (08:50)
[2018-02-08] MEDS: LANTHANUM CARBONATE 500 MG CHEW TABLET PO ×3 (08:50→17:59)
[2018-02-08] MEDS: POTASSIUM CHLORIDE 10 MEQ SR TABLET PO ×2 (08:51→21:44)
[2018-02-08] MEDS: CLOPIDOGREL 75 MG TAB PO (08:51)
[2018-02-08] MEDS: DIAPER RELIEF PASTE (DESITIN) 60GM TOP (08:52)
[2018-02-08] MEDS: SANTYL OINT 30GM TOP (08:52)
[2018-02-08] MEDS: CINACALCET 30 MG TAB (SENSIPAR) PO (09:39)
[2018-02-08] MEDS ORDERED: POTASSIUM CHLORIDE 10 MEQ SR TABLET PO (09:45)
[2018-02-08] MEDS ORDERED: MAG SULF 1GM/100ML (MAG RUN) 1 GM in APPROPRIATE DILUENT 1 EA IV (10:00)
[2018-02-08] MEDS: ACETAMINOPHEN TAB 650MG DOSE (2X325MG) PO (10:24)
[2018-02-08] MEDS: SLF 3 ML SYR IV ×2 (14:15→21:44)
[2018-02-08 15:42] LABS: RBC BODY FLUID < 2 10^3/uL (<2)
[2018-02-08 15:43] LABS: APPEARANCE, BODY FLUID CLEAR (CLEAR); BF DIFF IF INDICATED? NO (NO); PERITONEAL DIALYSATE FL COLOR COLORLESS (COLORLESS); SOURCE, BODY FLUID PERITONEAL DIALYSATE; WBC BODY FLUID 6 /uL (0-10)
[2018-02-08] MEDS: MEROPENEM INJ 500 MG in APPROPRIATE DILUENT 1 EA IV (17:18)
[2018-02-09] MEDS: PERCOCET 5MG/325MG TAB PO ×3 (04:47→19:56)
[2018-02-09 06:17] LABS: HEMATOCRIT 26.1 % (36.0-47.0); HEMOGLOBIN 8.9 g/dl (12.0-15.5); MEAN CORPUSCULAR HEMOGLOBIN 33.1 pg (27.0-33.0); MEAN CORPUSCULAR HGB CONC 34.1 g/dl (32.0-36.5); PLATELET COUNT, AUTOMATED 227 10^3/uL (150-450); RED BLOOD COUNT 2.69 10^6/uL (4.00-5.40); RED CELL DISTRIBUTION WIDTH 17.7 % (11.5-14.5); WHITE BLOOD COUNT 9.5 10^3/uL (4.0-10.0)
[2018-02-09] MEDS: MIDODRINE 5 MG TAB PO ×3 (06:21→17:08)
[2018-02-09] MEDS: SLF 3 ML SYR IV ×3 (06:21→21:59)
[2018-02-09] MEDS: HEPARIN SOD (PORCINE) 5000 UNITS/ML VIAL SC ×3 (06:21→21:59)
[2018-02-09] MEDS: LINEZOLID 600 MG in APPROPRIATE DILUENT 1 EA IV (06:23)
[2018-02-09] MEDS: ACETAMINOPHEN TAB 650MG DOSE (2X325MG) PO ×2 (06:31→14:36)
[2018-02-09 06:40] LABS: ALBUMIN 1.9 GM/DL (3.2-5.2); ALBUMIN/GLOBULIN RATIO 0.46 (1.00-1.93); ALKALINE PHOSPHATASE 94 U/L (45-117); ALT/SGPT 13 U/L (12-78); ANION GAP 14 MEQ/L (8-16); AST/SGOT 22 U/L (7-37); BILIRUBIN,TOTAL 0.4 MG/DL (0.2-1.0); BLOOD UREA NITROGEN 39 MG/DL (7-18); C REACTIVE PROTEIN QUANTITATIV 8.07 MG/DL (0.00-0.30); CALCIUM LEVEL 7.2 MG/DL (8.8-10.2); CARBON DIOXIDE LEVEL 27 MEQ/L (21-32); CHLORIDE LEVEL 94 MEQ/L (98-107); GLUCOSE, FASTING 83 MG/DL (70-100); MAGNESIUM LEVEL 1.6 MG/DL (1.8-2.4); POTASSIUM SERUM 3.8 MEQ/L (3.5-5.1); SODIUM LEVEL 135 MEQ/L (136-145)
[2018-02-09] MEDS: CLOPIDOGREL 75 MG TAB PO (08:48)
[2018-02-09] MEDS: ATORVASTATIN 20 MG TAB PO (08:48)
[2018-02-09] MEDS: LANTHANUM CARBONATE 500 MG CHEW TABLET PO ×3 (08:48→17:08)
[2018-02-09] MEDS: MAG SULF 1GM/100ML (MAG RUN) 1 GM in APPROPRIATE DILUENT 1 EA IV (08:48)
[2018-02-09] MEDS: ASPIRIN 81 MG ENTERIC TAB PO (08:49)
[2018-02-09] MEDS: POTASSIUM CHLORIDE 10 MEQ SR TABLET PO ×2 (08:51→21:59)
[2018-02-09] MEDS: DIAPER RELIEF PASTE (DESITIN) 60GM TOP (12:24)
[2018-02-09] MEDS: SANTYL OINT 30GM TOP (12:24)
[2018-02-09] MEDS: LINEZOLID 600MG TABLET (ZYVOX) PO (17:08)
[2018-02-10] MEDS: PERCOCET 5MG/325MG TAB PO ×3 (03:23→16:23)
[2018-02-10 05:50] LABS: HEMATOCRIT 26.4 % (36.0-47.0); MEAN CORPUSCULAR HEMOGLOBIN 33.2 pg (27.0-33.0); MEAN CORPUSCULAR HGB CONC 34.1 g/dl (32.0-36.5); MEAN CORPUSCULAR VOLUME 97.4 fl (80.0-96.0); PLATELET COUNT, AUTOMATED 219 10^3/uL (150-450); RED BLOOD COUNT 2.71 10^6/uL (4.00-5.40); RED CELL DISTRIBUTION WIDTH 17.7 % (11.5-14.5); WHITE BLOOD COUNT 10.5 10^3/uL (4.0-10.0)
[2018-02-10] MEDS: MIDODRINE 5 MG TAB PO ×3 (06:08→18:02)
[2018-02-10] MEDS: HEPARIN SOD (PORCINE) 5000 UNITS/ML VIAL SC ×3 (06:09→21:40)
[2018-02-10] MEDS: SLF 3 ML SYR IV ×4 (06:09→22:55)
[2018-02-10] MEDS: LINEZOLID 600MG TABLET (ZYVOX) PO ×2 (06:09→18:02)
[2018-02-10 06:13] LABS: ALBUMIN/GLOBULIN RATIO 0.49 (1.00-1.93); ALKALINE PHOSPHATASE 104 U/L (45-117); ALT/SGPT 13 U/L (12-78); ANION GAP 13 MEQ/L (8-16); AST/SGOT 22 U/L (7-37); BILIRUBIN,TOTAL 0.3 MG/DL (0.2-1.0); BLOOD UREA NITROGEN 41 MG/DL (7-18); CALCIUM LEVEL 7.3 MG/DL (8.8-10.2); CARBON DIOXIDE LEVEL 28 MEQ/L (21-32); CHLORIDE LEVEL 95 MEQ/L (98-107); GLOMERULAR FILTRATION RATE 4.1 (>45); GLUCOSE, FASTING 86 MG/DL (70-100); MAGNESIUM LEVEL 1.9 MG/DL (1.8-2.4); POTASSIUM SERUM 4.1 MEQ/L (3.5-5.1); SODIUM LEVEL 136 MEQ/L (136-145); TOTAL PROTEIN 6.1 GM/DL (6.4-8.2)
[2018-02-10 08:04] LABS: C REACTIVE PROTEIN QUANTITATIV 8.44 MG/DL (0.00-0.30)
[2018-02-10] MEDS: LANTHANUM CARBONATE 500 MG CHEW TABLET PO ×3 (08:31→18:00)
[2018-02-10] MEDS: POTASSIUM CHLORIDE 10 MEQ SR TABLET PO ×2 (08:31→21:37)
[2018-02-10] MEDS: ATORVASTATIN 20 MG TAB PO (08:32)
[2018-02-10] MEDS: CLOPIDOGREL 75 MG TAB PO (08:32)
[2018-02-10] MEDS: ASPIRIN 81 MG ENTERIC TAB PO (08:33)
[2018-02-10] MEDS: CINACALCET 30 MG TAB (SENSIPAR) PO (08:33)
[2018-02-10] MEDS: SANTYL OINT 30GM TOP (10:45)
[2018-02-10] MEDS: DIAPER RELIEF PASTE (DESITIN) 60GM TOP (10:45)
[2018-02-10] MEDS: ONDANSETRON 4MG/2ML VIAL (J2405) IV ×2 (12:12→16:35)
[2018-02-10] MEDS ORDERED: SODIUM THIOSULFATE (25%) 12.5 GM/50 ML VIAL IV (12:30)
[2018-02-10] MEDS: SODIUM THIOSULFATE 25 GM in NS 100 ML IV (15:05)
[2018-02-10] MEDS: PROMETHAZINE INJ 25 MG/ML VIAL (J2550) IV ×2 (17:38→22:55)
[2018-02-11 05:08] LABS: BASO % 0.3 % (0.0-1.0); EOS # 0.1 10^3/uL (0.0-0.50); EOS % 0.5 % (0.0-3.0); HEMATOCRIT 25.8 % (36.0-47.0); HEMOGLOBIN 8.9 g/dl (12.0-15.5); LYMPH # 1.8 10^3/uL (1.5-4.5); LYMPH % 16.8 % (24.0-44.0); MEAN CORPUSCULAR HGB CONC 34.5 g/dl (32.0-36.5); MEAN CORPUSCULAR VOLUME 95.6 fl (80.0-96.0); MONO # 1.4 10^3/uL (0.0-0.8); NEUTROPHILS # 7.2 10^3/uL (1.8-7.7); NEUTROPHILS % 68.4 % (36.0-66.0); PLATELET COUNT, AUTOMATED 210 10^3/uL (150-450); WHITE BLOOD COUNT 10.5 10^3/uL (4.0-10.0)
[2018-02-11 05:29] LABS: ALBUMIN 1.8 GM/DL (3.2-5.2); ALBUMIN/GLOBULIN RATIO 0.43 (1.00-1.93); ALKALINE PHOSPHATASE 101 U/L (45-117); ALT/SGPT 11 U/L (12-78); ANION GAP 24 MEQ/L (8-16); AST/SGOT 19 U/L (7-37); BILIRUBIN,TOTAL 0.3 MG/DL (0.2-1.0); BLOOD UREA NITROGEN 39 MG/DL (7-18); C REACTIVE PROTEIN QUANTITATIV 9.31 MG/DL (0.00-0.30); CALCIUM LEVEL 7.5 MG/DL (8.8-10.2); CARBON DIOXIDE LEVEL 23 MEQ/L (21-32); CHLORIDE LEVEL 95 MEQ/L (98-107); GLOMERULAR FILTRATION RATE 4.1 (>45); GLUCOSE, FASTING 84 MG/DL (70-100); MAGNESIUM LEVEL 1.8 MG/DL (1.8-2.4); SODIUM LEVEL 142 MEQ/L (136-145)
[2018-02-11] MEDS: LINEZOLID 600MG TABLET (ZYVOX) PO ×2 (06:10→18:39)
[2018-02-11] MEDS: HEPARIN SOD (PORCINE) 5000 UNITS/ML VIAL SC ×3 (06:11→22:04)
[2018-02-11] MEDS: MIDODRINE 5 MG TAB PO ×3 (06:11→18:39)
[2018-02-11] MEDS: PROMETHAZINE INJ 25 MG/ML VIAL (J2550) IV ×3 (06:11→15:15)
[2018-02-11] MEDS: SLF 3 ML SYR IV ×3 (06:12→22:04)
[2018-02-11] MEDS: CLOPIDOGREL 75 MG TAB PO (10:08)
[2018-02-11] MEDS: ATORVASTATIN 20 MG TAB PO (10:08)
[2018-02-11] MEDS: POTASSIUM CHLORIDE 10 MEQ SR TABLET PO ×2 (10:08→20:56)
[2018-02-11] MEDS: LANTHANUM CARBONATE 500 MG CHEW TABLET PO ×3 (10:08→18:39)
[2018-02-11] MEDS: ASPIRIN 81 MG ENTERIC TAB PO (10:08)
[2018-02-11] MEDS: PERCOCET 5MG/325MG TAB PO ×2 (10:13→18:53)
[2018-02-11] MEDS: SANTYL OINT 30GM TOP (11:25)
[2018-02-11] MEDS: DIAPER RELIEF PASTE (DESITIN) 60GM TOP (11:26)
[2018-02-11] MEDS: ACETAMINOPHEN TAB 650MG DOSE (2X325MG) PO (14:24)
[2018-02-12] MEDS: PERCOCET 5MG/325MG TAB PO ×3 (01:42→20:02)
[2018-02-12 05:15] LABS: BASO % 0.3 % (0.0-1.0); EOS # 0.2 10^3/uL (0.0-0.50); EOS % 1.4 % (0.0-3.0); HEMATOCRIT 25.7 % (36.0-47.0); HEMOGLOBIN 8.8 g/dl (12.0-15.5); IMMATURE GRANULOCYTE % 0.9 % (0-3.0); LYMPH # 1.9 10^3/uL (1.5-4.5); LYMPH % 17.6 % (24.0-44.0); MEAN CORPUSCULAR HGB CONC 34.2 g/dl (32.0-36.5); MEAN CORPUSCULAR VOLUME 96.3 fl (80.0-96.0); MONO # 1.2 10^3/uL (0.0-0.8); MONO % 11.1 % (0.0-5.0); NEUTROPHILS # 7.3 10^3/uL (1.8-7.7); NEUTROPHILS % 68.7 % (36.0-66.0); PLATELET COUNT, AUTOMATED 202 10^3/uL (150-450); RED BLOOD COUNT 2.67 10^6/uL (4.00-5.40); RED CELL DISTRIBUTION WIDTH 18.3 % (11.5-14.5); WHITE BLOOD COUNT 10.7 10^3/uL (4.0-10.0)
[2018-02-12] MEDS: ACETAMINOPHEN TAB 650MG DOSE (2X325MG) PO (05:20)
[2018-02-12] MEDS: LINEZOLID 600MG TABLET (ZYVOX) PO ×2 (05:20→19:56)
[2018-02-12] MEDS: HEPARIN SOD (PORCINE) 5000 UNITS/ML VIAL SC ×3 (05:21→21:54)
[2018-02-12] MEDS: SLF 3 ML SYR IV ×3 (05:33→21:55)
[2018-02-12 05:36] LABS: ALBUMIN 1.8 GM/DL (3.2-5.2); ALBUMIN/GLOBULIN RATIO 0.44 (1.00-1.93); ALKALINE PHOSPHATASE 96 U/L (45-117); ALT/SGPT 10 U/L (12-78); ANION GAP 21 MEQ/L (8-16); AST/SGOT 19 U/L (7-37); BILIRUBIN,TOTAL 0.3 MG/DL (0.2-1.0); BLOOD UREA NITROGEN 44 MG/DL (7-18); C REACTIVE PROTEIN QUANTITATIV 7.51 MG/DL (0.00-0.30); CALCIUM LEVEL 7.3 MG/DL (8.8-10.2); CARBON DIOXIDE LEVEL 25 MEQ/L (21-32); CHLORIDE LEVEL 96 MEQ/L (98-107); GLOMERULAR FILTRATION RATE 4.2 (>45); GLUCOSE, FASTING 82 MG/DL (70-100); MAGNESIUM LEVEL 1.8 MG/DL (1.8-2.4); POTASSIUM SERUM 4.3 MEQ/L (3.5-5.1); SODIUM LEVEL 142 MEQ/L (136-145); TOTAL PROTEIN 5.9 GM/DL (6.4-8.2)
[2018-02-12] MEDS: MIDODRINE 5 MG TAB PO ×3 (06:00→19:56)
[2018-02-12] MEDS: LANTHANUM CARBONATE 500 MG CHEW TABLET PO ×4 (08:00→18:00)
[2018-02-12] MEDS: ASPIRIN 81 MG ENTERIC TAB PO (08:52)
[2018-02-12] MEDS: DRONABINOL 2.5 MG CAP (MARINOL) PO ×2 (08:53→19:55)
[2018-02-12] MEDS: ATORVASTATIN 20 MG TAB PO (08:53)
[2018-02-12] MEDS: POTASSIUM CHLORIDE 10 MEQ SR TABLET PO ×3 (08:53→20:02)
[2018-02-12] MEDS: CLOPIDOGREL 75 MG TAB PO (08:53)
[2018-02-12] MEDS: DIAPER RELIEF PASTE (DESITIN) 60GM TOP (08:54)
[2018-02-12] MEDS: SANTYL OINT 30GM TOP (08:54)
[2018-02-12] MEDS: MORPHINE 4 MG/ML 1ML VIAL/SYRINGE (J2270) IV (10:30)
[2018-02-12 11:27] LABS: BEDSIDE GLUCOSE 96 MG/DL (80-115)
[2018-02-12] MEDS: PROMETHAZINE INJ 25 MG/ML VIAL (J2550) IV ×2 (12:15→19:04)
[2018-02-13] MEDS: PERCOCET 5MG/325MG TAB PO ×2 (03:17→22:04)
[2018-02-13 05:50] LABS: BASO % 0.3 % (0.0-1.0); EOS # 0.1 10^3/uL (0.0-0.50); EOS % 0.8 % (0.0-3.0); HEMATOCRIT 26.1 % (36.0-47.0); IMMATURE GRANULOCYTE % 0.9 % (0-3.0); LYMPH # 1.6 10^3/uL (1.5-4.5); LYMPH % 13.8 % (24.0-44.0); MEAN CORPUSCULAR HEMOGLOBIN 33.2 pg (27.0-33.0); MEAN CORPUSCULAR HGB CONC 34.5 g/dl (32.0-36.5); MEAN CORPUSCULAR VOLUME 96.3 fl (80.0-96.0); MONO # 1.2 10^3/uL (0.0-0.8); MONO % 10.1 % (0.0-5.0); NEUTROPHILS # 8.5 10^3/uL (1.8-7.7); NEUTROPHILS % 74.1 % (36.0-66.0); PLATELET COUNT, AUTOMATED 198 10^3/uL (150-450); RED BLOOD COUNT 2.71 10^6/uL (4.00-5.40); RED CELL DISTRIBUTION WIDTH 18.3 % (11.5-14.5); WHITE BLOOD COUNT 11.4 10^3/uL (4.0-10.0)
[2018-02-13 05:58] LABS: ALBUMIN 1.9 GM/DL (3.2-5.2); ALBUMIN/GLOBULIN RATIO 0.48 (1.00-1.93); ALKALINE PHOSPHATASE 96 U/L (45-117); ALT/SGPT 12 U/L (12-78); ANION GAP 17 MEQ/L (8-16); AST/SGOT 20 U/L (7-37); BILIRUBIN,TOTAL 0.4 MG/DL (0.2-1.0); BLOOD UREA NITROGEN 41 MG/DL (7-18); C REACTIVE PROTEIN QUANTITATIV 7.61 MG/DL (0.00-0.30); CALCIUM LEVEL 7.6 MG/DL (8.8-10.2); CARBON DIOXIDE LEVEL 24 MEQ/L (21-32); CHLORIDE LEVEL 99 MEQ/L (98-107); GLOMERULAR FILTRATION RATE 4.2 (>45); GLUCOSE, FASTING 83 MG/DL (70-100); MAGNESIUM LEVEL 1.5 MG/DL (1.8-2.4); POTASSIUM SERUM 4.2 MEQ/L (3.5-5.1); SODIUM LEVEL 140 MEQ/L (136-145); TOTAL PROTEIN 5.9 GM/DL (6.4-8.2)
[2018-02-13 06:04] LABS: CREATININE FOR GFR 9.84 MG/DL (0.55-1.30)
[2018-02-13] MEDS: HEPARIN SOD (PORCINE) 5000 UNITS/ML VIAL SC ×3 (06:06→22:04)
[2018-02-13] MEDS: PROMETHAZINE INJ 25 MG/ML VIAL (J2550) IV (06:07)
[2018-02-13] MEDS: LINEZOLID 600MG TABLET (ZYVOX) PO ×2 (06:07→22:04)
[2018-02-13] MEDS: SLF 3 ML SYR IV ×3 (06:07→22:04)
[2018-02-13] MEDS: MIDODRINE 5 MG TAB PO ×3 (06:07→17:57)
[2018-02-13] MEDS: MAG SULF 1GM/100ML (MAG RUN) 1 GM in APPROPRIATE DILUENT 1 EA IV ×2 (07:00→08:00)
[2018-02-13] MEDS: LANTHANUM CARBONATE 500 MG CHEW TABLET PO ×3 (08:00→17:57)
[2018-02-13] MEDS: ASPIRIN 81 MG ENTERIC TAB PO (08:54)
[2018-02-13] MEDS: ATORVASTATIN 20 MG TAB PO (08:55)
[2018-02-13] MEDS: DIAPER RELIEF PASTE (DESITIN) 60GM TOP (08:55)
[2018-02-13] MEDS: DRONABINOL 2.5 MG CAP (MARINOL) PO ×2 (08:55→17:57)
[2018-02-13] MEDS: CLOPIDOGREL 75 MG TAB PO (08:55)
[2018-02-13] MEDS: CINACALCET 30 MG TAB (SENSIPAR) PO (08:55)
[2018-02-13] MEDS: POTASSIUM CHLORIDE 10 MEQ SR TABLET PO ×2 (08:55→22:03)
[2018-02-13] MEDS: SANTYL OINT 30GM TOP (08:55)
[2018-02-13] MEDS: HEPARIN SOD (PORCINE) 5000 UNITS/ML VIAL PD (11:31)
[2018-02-13] MEDS: SODIUM THIOSULFATE 25 GM in NS 100 ML IV (14:37)
[2018-02-13] MEDS: ONDANSETRON 4MG/2ML VIAL (J2405) IV (17:57)
[2018-02-14] MEDS: PERCOCET 5MG/325MG TAB PO ×3 (03:47→22:36)
[2018-02-14 05:44] LABS: BASO % 0.4 % (0.0-1.0); EOS # 0.1 10^3/uL (0.0-0.50); EOS % 0.7 % (0.0-3.0); HEMATOCRIT 25.1 % (36.0-47.0); HEMOGLOBIN 8.6 g/dl (12.0-15.5); IMMATURE GRANULOCYTE % 0.9 % (0-3.0); LYMPH # 1.9 10^3/uL (1.5-4.5); MEAN CORPUSCULAR HEMOGLOBIN 33.7 pg (27.0-33.0); MEAN CORPUSCULAR HGB CONC 34.3 g/dl (32.0-36.5); MEAN CORPUSCULAR VOLUME 98.4 fl (80.0-96.0); MONO # 1.3 10^3/uL (0.0-0.8); MONO % 11.8 % (0.0-5.0); NEUTROPHILS # 7.2 10^3/uL (1.8-7.7); NEUTROPHILS % 68.2 % (36.0-66.0); PLATELET COUNT, AUTOMATED 178 10^3/uL (150-450); RED BLOOD COUNT 2.55 10^6/uL (4.00-5.40); RED CELL DISTRIBUTION WIDTH 18.4 % (11.5-14.5); WHITE BLOOD COUNT 10.6 10^3/uL (4.0-10.0)
[2018-02-14] MEDS: MIDODRINE 5 MG TAB PO ×3 (06:01→18:05)
[2018-02-14] MEDS: HEPARIN SOD (PORCINE) 5000 UNITS/ML VIAL SC ×3 (06:01→21:19)
[2018-02-14] MEDS: SLF 3 ML SYR IV ×4 (06:03→21:20)
[2018-02-14 06:04] LABS: ALBUMIN 1.9 GM/DL (3.2-5.2); ALBUMIN/GLOBULIN RATIO 0.49 (1.00-1.93); ALKALINE PHOSPHATASE 89 U/L (45-117); ALT/SGPT 10 U/L (12-78); ANION GAP 26 MEQ/L (8-16); AST/SGOT 14 U/L (7-37); BILIRUBIN,TOTAL 0.2 MG/DL (0.2-1.0); BLOOD UREA NITROGEN 39 MG/DL (7-18); C REACTIVE PROTEIN QUANTITATIV 6.43 MG/DL (0.00-0.30); CALCIUM LEVEL 8.1 MG/DL (8.8-10.2); CARBON DIOXIDE LEVEL 22 MEQ/L (21-32); CHLORIDE LEVEL 95 MEQ/L (98-107); GLUCOSE, FASTING 81 MG/DL (70-100); MAGNESIUM LEVEL 2.1 MG/DL (1.8-2.4); POTASSIUM SERUM 4.7 MEQ/L (3.5-5.1); SODIUM LEVEL 143 MEQ/L (136-145); TOTAL PROTEIN 5.8 GM/DL (6.4-8.2)
[2018-02-14] MEDS: LANTHANUM CARBONATE 500 MG CHEW TABLET PO ×3 (08:00→17:48)
[2018-02-14] MEDS: ATORVASTATIN 20 MG TAB PO (09:03)
[2018-02-14] MEDS: LINEZOLID 600MG TABLET (ZYVOX) PO (09:04)
[2018-02-14] MEDS: POTASSIUM CHLORIDE 10 MEQ SR TABLET PO ×2 (09:04→21:19)
[2018-02-14] MEDS: DRONABINOL 2.5 MG CAP (MARINOL) PO ×2 (09:04→18:05)
[2018-02-14] MEDS: ASPIRIN 81 MG ENTERIC TAB PO (09:04)
[2018-02-14] MEDS: SANTYL OINT 30GM TOP (09:05)
[2018-02-14] MEDS: CLOPIDOGREL 75 MG TAB PO (09:05)
[2018-02-14] MEDS: DIAPER RELIEF PASTE (DESITIN) 60GM TOP (09:06)
[2018-02-14] MEDS ORDERED: ONDANSETRON 4MG/2ML VIAL (J2405) IV (10:15)
[2018-02-14] MEDS: DARBEPOETIN 100 MCG/0.5 ML *NON-DIALYSIS* SYRINGE (J0881) SC (11:32)
[2018-02-14] MEDS: LORazepam 0.5 MG TAB PO (14:34)
[2018-02-15] MEDS: HEPARIN SOD (PORCINE) 5000 UNITS/ML VIAL SC ×3 (05:32→22:14)
[2018-02-15] MEDS: SODIUM CHLORIDE 0.9% INJ 10 ML SYR IV ×2 (05:32→17:04)
[2018-02-15] MEDS: PERCOCET 5MG/325MG TAB PO ×4 (05:33→23:03)
[2018-02-15 06:16] LABS: BASO # 0.1 10^3/uL (0.0-0.2); BASO % 0.5 % (0.0-1.0); EOS # 0.1 10^3/uL (0.0-0.50); EOS % 0.9 % (0.0-3.0); HEMOGLOBIN 8.2 g/dl (12.0-15.5); IMMATURE GRANULOCYTE % 0.7 % (0-3.0); LYMPH # 1.6 10^3/uL (1.5-4.5); LYMPH % 14.9 % (24.0-44.0); MEAN CORPUSCULAR HEMOGLOBIN 33.5 pg (27.0-33.0); MEAN CORPUSCULAR HGB CONC 34.2 g/dl (32.0-36.5); MONO # 1.3 10^3/uL (0.0-0.8); MONO % 11.8 % (0.0-5.0); NEUTROPHILS # 7.6 10^3/uL (1.8-7.7); NEUTROPHILS % 71.2 % (36.0-66.0); PLATELET COUNT, AUTOMATED 177 10^3/uL (150-450); RED BLOOD COUNT 2.45 10^6/uL (4.00-5.40); RED CELL DISTRIBUTION WIDTH 18.3 % (11.5-14.5); WHITE BLOOD COUNT 10.7 10^3/uL (4.0-10.0)
[2018-02-15 06:33] LABS: ALBUMIN 1.9 GM/DL (3.2-5.2); ALKALINE PHOSPHATASE 93 U/L (45-117); ALT/SGPT 11 U/L (12-78); ANION GAP 24 MEQ/L (8-16); AST/SGOT 20 U/L (7-37); BILIRUBIN,TOTAL 0.3 MG/DL (0.2-1.0); BLOOD UREA NITROGEN 42 MG/DL (7-18); CALCIUM LEVEL 8.1 MG/DL (8.8-10.2); CARBON DIOXIDE LEVEL 23 MEQ/L (21-32); CHLORIDE LEVEL 96 MEQ/L (98-107); GLOMERULAR FILTRATION RATE 4.4 (>45); GLUCOSE, FASTING 84 MG/DL (70-100); POTASSIUM SERUM 4.6 MEQ/L (3.5-5.1); SODIUM LEVEL 143 MEQ/L (136-145); TOTAL PROTEIN 5.9 GM/DL (6.4-8.2)
[2018-02-15 06:34] LABS: ALBUMIN/GLOBULIN RATIO 0.48 (1.00-1.93); C REACTIVE PROTEIN QUANTITATIV 5.42 MG/DL (0.00-0.30)
[2018-02-15 06:39] LABS: CREATININE FOR GFR 9.56 MG/DL (0.55-1.30)
[2018-02-15] MEDS: MIDODRINE 5 MG TAB PO ×3 (06:52→19:30)
[2018-02-15] MEDS: CINACALCET 30 MG TAB (SENSIPAR) PO (09:36)
[2018-02-15] MEDS: ATORVASTATIN 20 MG TAB PO (09:37)
[2018-02-15] MEDS: LANTHANUM CARBONATE 500 MG CHEW TABLET PO ×3 (09:37→18:00)
[2018-02-15] MEDS: CLOPIDOGREL 75 MG TAB PO (09:37)
[2018-02-15] MEDS: POTASSIUM CHLORIDE 10 MEQ SR TABLET PO ×2 (09:38→22:12)
[2018-02-15] MEDS: DRONABINOL 2.5 MG CAP (MARINOL) PO ×2 (09:39→16:29)
[2018-02-15] MEDS: ASPIRIN 81 MG ENTERIC TAB PO (09:39)
[2018-02-15] MEDS: SODIUM THIOSULFATE 25 GM in NS 100 ML IV (15:29)
[2018-02-15] MEDS ORDERED: PILL CRUSHER/CUTTER 1 EACH XX (16:15)
[2018-02-15] MEDS: LORazepam 0.5 MG TAB PO (16:28)
[2018-02-15 21:54] LABS: IMMEDIATE SPIN CROSSMATCH 1 2
[2018-02-15] MEDS: ONDANSETRON 4MG/2ML VIAL (J2405) IV (23:03)
[2018-02-15] MEDS: DIAPER RELIEF PASTE (DESITIN) 60GM TOP (23:42)
[2018-02-15] MEDS: SANTYL OINT 30GM TOP (23:42)
[2018-02-16] MEDS: SODIUM CHLORIDE 0.9% INJ 10 ML SYR IV ×2 (05:38→17:17)
[2018-02-16] MEDS: HEPARIN SOD (PORCINE) 5000 UNITS/ML VIAL SC ×3 (05:39→20:42)
[2018-02-16 05:51] LABS: BASO % 0.2 % (0.0-1.0); EOS % 0.2 % (0.0-3.0); HEMOGLOBIN 9.7 g/dl (12.0-15.5); IMMATURE GRANULOCYTE % 1.3 % (0-3.0); LYMPH # 1.9 10^3/uL (1.5-4.5); LYMPH % 15.4 % (24.0-44.0); MEAN CORPUSCULAR HEMOGLOBIN 32.3 pg (27.0-33.0); MEAN CORPUSCULAR HGB CONC 34.6 g/dl (32.0-36.5); MEAN CORPUSCULAR VOLUME 93.3 fl (80.0-96.0); MONO # 1.8 10^3/uL (0.0-0.8); MONO % 14.7 % (0.0-5.0); NEUTROPHILS # 8.5 10^3/uL (1.8-7.7); NEUTROPHILS % 68.2 % (36.0-66.0); PLATELET COUNT, AUTOMATED 150 10^3/uL (150-450); RED CELL DISTRIBUTION WIDTH 19.7 % (11.5-14.5); WHITE BLOOD COUNT 12.5 10^3/uL (4.0-10.0)
[2018-02-16 06:11] LABS: ALBUMIN 1.8 GM/DL (3.2-5.2); ALBUMIN/GLOBULIN RATIO 0.45 (1.00-1.93); ALKALINE PHOSPHATASE 89 U/L (45-117); ALT/SGPT 12 U/L (12-78); ANION GAP 32 MEQ/L (8-16); AST/SGOT 16 U/L (7-37); BILIRUBIN,TOTAL 0.3 MG/DL (0.2-1.0); BLOOD UREA NITROGEN 41 MG/DL (7-18); CALCIUM LEVEL 7.8 MG/DL (8.8-10.2); CARBON DIOXIDE LEVEL 21 MEQ/L (21-32); CHLORIDE LEVEL 95 MEQ/L (98-107); GLOMERULAR FILTRATION RATE 4.6 (>45); GLUCOSE, FASTING 94 MG/DL (70-100); MAGNESIUM LEVEL 1.9 MG/DL (1.8-2.4); POTASSIUM SERUM 4.6 MEQ/L (3.5-5.1); SODIUM LEVEL 148 MEQ/L (136-145); TOTAL PROTEIN 5.8 GM/DL (6.4-8.2)
[2018-02-16 06:15] LABS: CREATININE FOR GFR 9.13 MG/DL (0.55-1.30)
[2018-02-16] MEDS: MIDODRINE 5 MG TAB PO ×3 (07:11→17:06)
[2018-02-16] MEDS: ASPIRIN 81 MG ENTERIC TAB PO (09:33)
[2018-02-16] MEDS: ATORVASTATIN 20 MG TAB PO (09:34)
[2018-02-16] MEDS: CLOPIDOGREL 75 MG TAB PO (09:34)
[2018-02-16] MEDS: LANTHANUM CARBONATE 500 MG CHEW TABLET PO ×3 (09:34→17:07)
[2018-02-16] MEDS: POTASSIUM CHLORIDE 10 MEQ SR TABLET PO ×2 (09:35→20:41)
[2018-02-16] MEDS: DIAPER RELIEF PASTE (DESITIN) 60GM TOP (09:36)
[2018-02-16] MEDS: DRONABINOL 2.5 MG CAP (MARINOL) PO ×2 (09:36→17:07)
[2018-02-16] MEDS: SANTYL OINT 30GM TOP (09:36)
[2018-02-16] MEDS ORDERED: VARIBAR PUDDING 40% w/v 230ML TUBE As Ordered (12:38)
[2018-02-16] MEDS ORDERED: E-Z-PAQUE 96% w/w SUSP 176GM BTL As Ordered (12:39)
[2018-02-16] MEDS ORDERED: BARIUM SULFATE 700 MG TABLET (E-Z-DISK) As Ordered (12:39)
[2018-02-16] MEDS ORDERED: VARIBAR NECTAR 40% w/v 240ML SUSP BTL As Ordered (12:39)
[2018-02-16] MEDS: PERCOCET 5MG/325MG TAB PO ×2 (13:47→20:43)
[2018-02-16] MEDS: HEPARIN 1,000 UNITS/ML 10ML VIAL (FOR RADIOLOGY& DIALYSIS ONLY) XX (14:00)
[2018-02-16] MEDS: LORazepam 0.5 MG TAB PO (17:07)
[2018-02-17] MEDS: PERCOCET 5MG/325MG TAB PO ×4 (02:28→23:02)
[2018-02-17] MEDS: SODIUM CHLORIDE 0.9% INJ 10 ML SYR IV ×3 (05:24→23:09)
[2018-02-17] MEDS: HEPARIN SOD (PORCINE) 5000 UNITS/ML VIAL SC ×3 (05:24→22:00)
[2018-02-17 05:50] LABS: BASO # 0.1 10^3/uL (0.0-0.2); BASO % 0.4 % (0.0-1.0); EOS % 0.3 % (0.0-3.0); HEMATOCRIT 27.8 % (36.0-47.0); HEMOGLOBIN 9.5 g/dl (12.0-15.5); IMMATURE GRANULOCYTE % 3.2 % (0-3.0); LYMPH # 1.8 10^3/uL (1.5-4.5); LYMPH % 13.8 % (24.0-44.0); MEAN CORPUSCULAR HEMOGLOBIN 32.8 pg (27.0-33.0); MEAN CORPUSCULAR HGB CONC 34.2 g/dl (32.0-36.5); MEAN CORPUSCULAR VOLUME 95.9 fl (80.0-96.0); MONO # 1.9 10^3/uL (0.0-0.8); MONO % 14.4 % (0.0-5.0); NEUTROPHILS # 8.8 10^3/uL (1.8-7.7); NEUTROPHILS % 67.9 % (36.0-66.0); PLATELET COUNT, AUTOMATED 151 10^3/uL (150-450); RED CELL DISTRIBUTION WIDTH 19.4 % (11.5-14.5); WHITE BLOOD COUNT 12.9 10^3/uL (4.0-10.0)
[2018-02-17] MEDS: MIDODRINE 5 MG TAB PO ×3 (06:14→17:02)
[2018-02-17] MEDS: ACETAMINOPHEN TAB 650MG DOSE (2X325MG) PO (06:15)
[2018-02-17 06:24] LABS: ALBUMIN 1.9 GM/DL (3.2-5.2); ALBUMIN/GLOBULIN RATIO 0.59 (1.00-1.93); ALKALINE PHOSPHATASE 93 U/L (45-117); ALT/SGPT 12 U/L (12-78); ANION GAP 26 MEQ/L (8-16); AST/SGOT 17 U/L (7-37); BILIRUBIN,TOTAL 0.3 MG/DL (0.2-1.0); BLOOD UREA NITROGEN 38 MG/DL (7-18); CALCIUM LEVEL 7.4 MG/DL (8.8-10.2); CARBON DIOXIDE LEVEL 22 MEQ/L (21-32); CHLORIDE LEVEL 97 MEQ/L (98-107); GLOMERULAR FILTRATION RATE 4.5 (>45); GLUCOSE, FASTING 92 MG/DL (70-100); MAGNESIUM LEVEL 1.7 MG/DL (1.8-2.4); POTASSIUM SERUM 4.2 MEQ/L (3.5-5.1); SODIUM LEVEL 145 MEQ/L (136-145); TOTAL PROTEIN 5.1 GM/DL (6.4-8.2)
[2018-02-17 06:26] LABS: CREATININE FOR GFR 9.26 MG/DL (0.55-1.30)
[2018-02-17] MEDS: LANTHANUM CARBONATE 500 MG CHEW TABLET PO ×3 (09:33→17:02)
[2018-02-17] MEDS: DRONABINOL 2.5 MG CAP (MARINOL) PO ×2 (10:35→17:02)
[2018-02-17] MEDS: POTASSIUM CHLORIDE 10 MEQ SR TABLET PO ×2 (10:35→21:00)
[2018-02-17] MEDS: CINACALCET 30 MG TAB (SENSIPAR) PO (10:35)
[2018-02-17] MEDS: ASPIRIN 81 MG ENTERIC TAB PO (10:35)
[2018-02-17] MEDS: ATORVASTATIN 20 MG TAB PO (10:35)
[2018-02-17] MEDS: CLOPIDOGREL 75 MG TAB PO (10:35)
[2018-02-17] MEDS: DIAPER RELIEF PASTE (DESITIN) 60GM TOP (10:36)
[2018-02-17] MEDS: SANTYL OINT 30GM TOP (10:36)
[2018-02-17] MEDS: ONDANSETRON 4MG/2ML VIAL (J2405) IV ×2 (13:26→23:09)
[2018-02-17] MEDS: SODIUM THIOSULFATE 25 GM in NS 100 ML IV (14:20)
[2018-02-17] MEDS: GABAPENTIN 100 MG CAP PO (17:02)
[2018-02-18] MEDS: PERCOCET 5MG/325MG TAB PO ×3 (05:14→22:16)
[2018-02-18] MEDS: SODIUM CHLORIDE 0.9% INJ 10 ML SYR IV ×2 (05:15→18:03)
[2018-02-18] MEDS: HEPARIN SOD (PORCINE) 5000 UNITS/ML VIAL SC ×3 (05:15→21:15)
[2018-02-18] MEDS: MIDODRINE 5 MG TAB PO ×3 (07:00→18:02)
[2018-02-18] MEDS: LANTHANUM CARBONATE 500 MG CHEW TABLET PO ×4 (08:00→18:02)
[2018-02-18 08:35] LABS: HEMATOCRIT 27.6 % (36.0-47.0); HEMOGLOBIN 9.3 g/dl (12.0-15.5); MEAN CORPUSCULAR HEMOGLOBIN 32.5 pg (27.0-33.0); MEAN CORPUSCULAR HGB CONC 33.7 g/dl (32.0-36.5); MEAN CORPUSCULAR VOLUME 96.5 fl (80.0-96.0); PLATELET COUNT, AUTOMATED 149 10^3/uL (150-450); RED BLOOD COUNT 2.86 10^6/uL (4.00-5.40); RED CELL DISTRIBUTION WIDTH 18.9 % (11.5-14.5); WHITE BLOOD COUNT 12.5 10^3/uL (4.0-10.0)
[2018-02-18 09:04] LABS: ANION GAP 34 MEQ/L (8-16); BLOOD UREA NITROGEN 32 MG/DL (7-18); CALCIUM LEVEL 7.8 MG/DL (8.8-10.2); CARBON DIOXIDE LEVEL 20 MEQ/L (21-32); CHLORIDE LEVEL 95 MEQ/L (98-107); GLOMERULAR FILTRATION RATE 4.6 (>45); GLUCOSE, FASTING 93 MG/DL (70-100); MAGNESIUM LEVEL 1.8 MG/DL (1.8-2.4); SODIUM LEVEL 149 MEQ/L (136-145)
[2018-02-18] MEDS: ATORVASTATIN 20 MG TAB PO (11:39)
[2018-02-18] MEDS: DRONABINOL 2.5 MG CAP (MARINOL) PO ×2 (11:41→18:03)
[2018-02-18] MEDS: CLOPIDOGREL 75 MG TAB PO (11:41)
[2018-02-18] MEDS: ASPIRIN 81 MG ENTERIC TAB PO (11:41)
[2018-02-18] MEDS: SANTYL OINT 30GM TOP (14:53)
[2018-02-18] MEDS: DIAPER RELIEF PASTE (DESITIN) 60GM TOP (14:54)
[2018-02-19] MEDS: PERCOCET 5MG/325MG TAB PO (05:21)
[2018-02-19] MEDS: HEPARIN SOD (PORCINE) 5000 UNITS/ML VIAL SC (05:22)
[2018-02-19] MEDS: SODIUM CHLORIDE 0.9% INJ 10 ML SYR IV (05:22)
[2018-02-19 05:34] LABS: HEMATOCRIT 28.1 % (36.0-47.0); HEMOGLOBIN 9.4 g/dl (12.0-15.5); MEAN CORPUSCULAR HEMOGLOBIN 32.3 pg (27.0-33.0); MEAN CORPUSCULAR HGB CONC 33.5 g/dl (32.0-36.5); MEAN CORPUSCULAR VOLUME 96.6 fl (80.0-96.0); PLATELET COUNT, AUTOMATED 171 10^3/uL (150-450); RED BLOOD COUNT 2.91 10^6/uL (4.00-5.40); RED CELL DISTRIBUTION WIDTH 18.5 % (11.5-14.5)
[2018-02-19 05:53] LABS: ANION GAP 28 MEQ/L (8-16); BLOOD UREA NITROGEN 33 MG/DL (7-18); CALCIUM LEVEL 7.5 MG/DL (8.8-10.2); CARBON DIOXIDE LEVEL 22 MEQ/L (21-32); CHLORIDE LEVEL 96 MEQ/L (98-107); GLOMERULAR FILTRATION RATE 4.5 (>45); GLUCOSE, FASTING 93 MG/DL (70-100); MAGNESIUM LEVEL 1.5 MG/DL (1.8-2.4); POTASSIUM SERUM 3.8 MEQ/L (3.5-5.1); SODIUM LEVEL 146 MEQ/L (136-145)
[2018-02-19 05:55] LABS: CREATININE FOR GFR 9.38 MG/DL (0.55-1.30)
[2018-02-19] MEDS: MIDODRINE 5 MG TAB PO (06:25)
[2018-02-19] MEDS: LANTHANUM CARBONATE 500 MG CHEW TABLET PO (08:00)
[2018-02-19] MEDS: ASPIRIN 81 MG ENTERIC TAB PO (08:30)
[2018-02-19] MEDS: ATORVASTATIN 20 MG TAB PO (08:31)
[2018-02-19] MEDS: CLOPIDOGREL 75 MG TAB PO (08:31)
[2018-02-19] MEDS: MAG SULF 1GM/100ML (MAG RUN) 1 GM in APPROPRIATE DILUENT 1 EA IV (08:32)
[2018-02-19] MEDS: SANTYL OINT 30GM TOP (08:33)
[2018-02-19] MEDS: DIAPER RELIEF PASTE (DESITIN) 60GM TOP (08:34)
== END 2018-02-19 12:45 | disposition home or self-care (01) | DRG 602 ==
LOC: M PCU 02-04 00:03 → M ED 11:47 → M MSPAV 02-14 20:13 → M ED INP 18:02
PROC: 30233N1 Transfusion of Nonautologous Red Blood Cells into Peripheral Vein, Percutaneous Approach (ICD-10-PCS; principal; 2018-02-03)
PROC: 02HV33Z Insertion of Infusion Device into Superior Vena Cava, Percutaneous Approach (ICD-10-PCS; 2018-02-14)
DX: L02.211 Cutaneous abscess of abdominal wall (principal); N18.6 End stage renal disease; I50.32 Chronic diastolic (congestive) heart failure; E87.2 Acidosis; N25.81 Secondary hyperparathyroidism of renal origin; I13.2 Hypertensive heart and chronic kidney disease with heart failure and with stage 5 chronic kidney disease, or end stage renal disease; E87.0 Hyperosmolality and hypernatremia; E83.59 Other disorders of calcium metabolism; L03.311 Cellulitis of abdominal wall; E78.5 Hyperlipidemia, unspecified; I95.9 Hypotension, unspecified; R91.1 Solitary pulmonary nodule; D63.1 Anemia in chronic kidney disease; Z91.19 Patient's noncompliance with other medical treatment and regimen; Z79.82 Long term (current) use of aspirin; Z79.899 Other long term (current) drug therapy; Z88.1 Allergy status to other antibiotic agents; Z88.8 Allergy status to other drugs, medicaments and biological substances; E83.42 Hypomagnesemia; E87.6 Hypokalemia; R11.2 Nausea with vomiting, unspecified

== ENCOUNTER → 2018-03-21 | Outpatient (CLI) | payer MEDICARE ==
[2018-03-22 14:05] LABS: IMMEDIATE SPIN CROSSMATCH 1 2
== END ==
LOC: M LAB 17:15
PROVIDERS: Pediatrics
DX: N18.9 Chronic kidney disease, unspecified (principal); D63.1 Anemia in chronic kidney disease
CPT/HCPCS: 36415

== ENCOUNTER 2018-03-22 13:30 | Outpatient (CLI) | payer MEDICARE | END 2018-03-22 18:35 | disposition home or self-care (01) | LOC: M INFU 13:30 | DX: D64.9 Anemia, unspecified (principal); Z79.899 Other long term (current) drug therapy; Z88.8 Allergy status to other drugs, medicaments and biological substances; Z88.1 Allergy status to other antibiotic agents | CPT/HCPCS: 36430 ==